=== PATIENT | female | born 1990 | race Hispanic/Latino ===

== ENCOUNTER → 2018-08-21 | Outpatient (CLI) | payer OTHER | END | disposition home or self-care (01) | LOC: RAH 13:39 | PROVIDERS: ATTEND Family Medicine | DX: E01.0 Iodine-deficiency related diffuse (endemic) goiter (principal) | CPT/HCPCS: 76536 ==

== ENCOUNTER 2022-02-05 10:21 | Emergency (ER) | payer OTHER ==
[~2022-02-05] VITALS: Ht 167.6 cm; Wt 122.9 kg
[2022-02-05] MEDS ORDERED: AMOX500C2 PO (11:32)
[2022-02-05] MEDS ORDERED: PRED5TAB PO (11:33)
[2022-02-05] MEDS ORDERED: ACETAMINOPHEN 500 MG TABLET PO STA (11:55)
[2022-02-05] MEDS ORDERED: ACETAMINOPHEN 500 MG TABLET ONE (11:56)
[2022-02-05 12:00] VITALS: BP 148/91
== END 2022-02-05 12:01 | disposition home or self-care (01) ==
LOC: EDH 10:21
DX: J02.0 Streptococcal pharyngitis (principal); E05.90 Thyrotoxicosis, unspecified without thyrotoxic crisis or storm; Z20.822 Contact with and (suspected) exposure to COVID-19
CPT/HCPCS: 99283; 87635; 87880; 87804 ×2; 81025; C9803

== ENCOUNTER 2023-02-07 06:21 | Emergency (ER) | payer OTHER ==
[~2023-02-07] VITALS: Ht 167.6 cm; Wt 117.0 kg
[~2023-02-07 06:21] MED LIST: AMOX500C2 PO; PRED5TAB PO
[2023-02-07 07:04] LABS: BASOPHILS # (AUTO) 0.05 K/uL (0.00-0.20); BASOPHILS % (AUTO) 0.5 % (0.0-5.0); EOSINOPHILS % (AUTO) 2.8 % (0.0-8.0); HEMATOCRIT 43.1 % (36-48); IMMATURE GRANULOCYTE ABSOLUTE 0.05 K/uL (0-1); LYMPHOCYTES # (AUTO) 2.2 K/uL (1.0-4.8); LYMPHOCYTES % (AUTO) 20.6 % (21.0-51.0); MEAN CORPUSCULAR HEMOGLOBIN 31.2 pg (27.0-33.0); MEAN CORPUSCULAR HGB CONC 34.6 g/dL (32.0-36.0); MEAN CORPUSCULAR VOLUME 90.2 fL (79-99); MONOCYTES # (AUTO) 0.7 K/uL (0.1-1.0); MONOCYTES % (AUTO) 6.5 % (3.0-13.0); NEUTROPHILS # (AUTO) 7.3 K/uL (1.8-7.7); NEUTROPHILS % (AUTO) 69.1 % (40.0-77.0); PLATELET COUNT (AUTO) 313 K/uL (130-400); RED BLOOD CELL COUNT(AUTO) 4.78 MIL/uL (4.00-5.50); WHITE BLOOD COUNT (AUTO) 10.6 K/uL (4.8-10.8)
[2023-02-07 07:11] LABS: SARS-CoV-2, RNA, NAAT NEGATIVE SARS CoV-2 (NEGATIVE)
[2023-02-07 07:15] LABS: INFLUENZA TYPE A Negative For Type A (NEGATIVE)
[2023-02-07 07:20] LABS: ALBUMIN 3.6 g/dL (3.5-5.0); BILIRUBIN,TOTAL 0.8 mg/dL (0.2-1.0); CREATININE 0.7 mg/dL (0.5-1.5); POTASSIUM 4.1 mmol/L (3.5-5.1); TOTAL PROTEIN, SERUM 8.5 g/dL (6.0-8.3)
[2023-02-07 07:28] LABS: INFLUENZA TYPE B Positive For Type B (NEGATIVE)
[2023-02-07 07:38] LABS: APPEARANCE,URINE CLEAR (CLEAR); BILIRUBIN,URINE NEGATIVE (NEGATIVE); COLOR,URINE LIGHT-YELLOW (YELLOW); GLUCOSE, URINE (UA) NEGATIVE (NEGATIVE); KETONES,URINE NEGATIVE (NEGATIVE); LEUKOCYTE ESTERASE ,URINE 25 Leu/uL (NEGATIVE); NITRATE,URINE NEGATIVE (NEGATIVE); OCCULT BLOOD,URINE SMALL (NEGATIVE); PROTEIN,URINE NEGATIVE (NEGATIVE); UROBILINOGEN,URINE 0.2 mg/dL (0.2-1.0)
[2023-02-07 07:54] LABS: ADD UA MICROSCOPIC YES
[2023-02-07 08:01] LABS: BACTERIA,URINE RARE /HPF (None Seen); MUCUS,URINE RARE LPF (None Seen); SQUAMOUS EPITHELIAL CELL,UR FEW /HPF (0-2); WBC,URINE 0-1 /HPF (0-1)
[2023-02-07] MEDS ORDERED: KETOROLAC 30MG VIAL (30MG/ML) IVP ONE (08:30)
[2023-02-07] MEDS ORDERED: ONDANSETRON 4MG INJ IVP ONE (08:30)
[2023-02-07 10:46] VITALS: BP 107/62; PULSE 75; RESP 16; O2SAT 99
[2023-02-07] MEDS ORDERED: SIMETHICONE 80 MG TAB.CHEW ONE (11:05)
[2023-02-07] MEDS ORDERED: MORPHINE 4 MG SYG ONE (11:06)
[2023-02-07] MEDS ORDERED: SIMETHICONE 80 MG TAB.CHEW PO SCH (11:30)
[2023-02-07] MEDS ORDERED: MORPHINE 4 MG SYG IVP ONE (11:30)
[2023-02-07] MEDS ORDERED: IBUP-2070 PO (12:37)
[2023-02-07] MEDS ORDERED: ONDA4TAB10 PO (12:37)
== END 2023-02-07 13:48 | disposition home or self-care (01) ==
LOC: EDH 06:21
DX: K80.50 Calculus of bile duct without cholangitis or cholecystitis without obstruction (principal); Z79.52 Long term (current) use of systemic steroids; Z20.822 Contact with and (suspected) exposure to COVID-19
CPT/HCPCS: 99285; 76705; 87635; 80053; 83690; 85025; 87804 ×2; 81001; 81025; 36415; C9803; J2405; J2270; J1885

== ENCOUNTER 2023-07-17 02:38 | Emergency (ER) | payer BC, OTHER ==
[~2023-07-17] VITALS: Ht 167.6 cm; Wt 119.3 kg
[~2023-07-17 02:38] MED LIST changes: +IBUP-2070 PO; +ONDA4TAB10 PO
[2023-07-17] MEDS: KETOROLAC 15MG/ML VIAL (15MG/ML) IV ONE (03:00)
[2023-07-17] MEDS: DICYCLOMINE 20MG (10MG/ML) AMP IM ONE (03:00)
[2023-07-17] MEDS: 0.9%NACL 1000ML 1,000 ML IV ONE (03:01)
[2023-07-17] MEDS: ONDANSETRON 4MG INJ IVP ONE (03:01)
[2023-07-17] MEDS: MORPHINE 4 MG SYG IVP ONE (03:01)
[2023-07-17 03:23] LABS: APPEARANCE,URINE CLEAR (CLEAR); BILIRUBIN,URINE NEGATIVE (NEGATIVE); COLOR,URINE LIGHT-YELLOW (YELLOW); GLUCOSE, URINE (UA) NEGATIVE (NEGATIVE); KETONES,URINE NEGATIVE (NEGATIVE); LEUKOCYTE ESTERASE ,URINE 75 Leu/uL (NEGATIVE); NITRATE,URINE NEGATIVE (NEGATIVE); OCCULT BLOOD,URINE MODERATE (NEGATIVE); PH,URINE 5.5 (5.0-8.0); PROTEIN,URINE NEGATIVE (NEGATIVE); UROBILINOGEN,URINE 0.2 mg/dL (0.2-1.0)
[2023-07-17 03:25] LABS: HCG,QUALITATIVE URINE NEGATIVE (NEGATIVE)
[2023-07-17 03:28] LABS: ADD UA MICROSCOPIC YES
[2023-07-17 03:30] LABS: BACTERIA,URINE RARE /HPF (None Seen); MUCUS,URINE RARE LPF (None Seen); SQUAMOUS EPITHELIAL CELL,UR FEW /HPF (0-2)
[2023-07-17 03:31] LABS: BASOPHILS # (AUTO) 0.06 K/uL (0.00-0.20); BASOPHILS % (AUTO) 0.6 % (0.0-5.0); EOSINOPHILS # (AUTO) 0.37 K/uL (0.00-0.70); EOSINOPHILS % (AUTO) 3.8 % (0.0-8.0); HEMATOCRIT 40.7 % (36-48); IMMATURE GRANULOCYTE ABSOLUTE 0.03 K/uL (0-1); LYMPHOCYTES # (AUTO) 2.4 K/uL (1.0-4.8); LYMPHOCYTES % (AUTO) 25.1 % (21.0-51.0); MEAN CORPUSCULAR HEMOGLOBIN 31.3 pg (27.0-33.0); MEAN CORPUSCULAR HGB CONC 34.9 g/dL (32.0-36.0); MEAN CORPUSCULAR VOLUME 89.6 fL (79-99); MONOCYTES # (AUTO) 0.7 K/uL (0.1-1.0); MONOCYTES % (AUTO) 7.4 % (3.0-13.0); NEUTROPHILS % (AUTO) 62.8 % (40.0-77.0); PLATELET COUNT (AUTO) 278 K/uL (130-400); RED BLOOD CELL COUNT(AUTO) 4.54 MIL/uL (4.00-5.50); RED CELL DISTRIBUTION WIDTH 11.9 % (11.0-15.5); WHITE BLOOD COUNT (AUTO) 9.6 K/uL (4.8-10.8)
[2023-07-17 03:33] VITALS: BP 125/74; PULSE 64; RESP 20; O2SAT 95
[2023-07-17 03:40] LABS: CREATININE 0.8 mg/dL (0.5-1.0); POTASSIUM 3.8 mmol/L (3.5-5.1)
[2023-07-17 03:45] LABS: ALBUMIN 3.5 g/dL (3.5-5.0); BILIRUBIN,TOTAL 0.7 mg/dL (0.2-1.0)
[2023-07-17] MEDS ORDERED: HYDR-4064 PO (03:49)
[2023-07-17] MEDS ORDERED: ONDA4TAB10 PO (03:49)
[2023-07-17] MEDS ORDERED: IBUP-2077 PO (03:49)
[2023-07-17] MEDS ORDERED: DICY20TA2 PO (03:49)
== END 2023-07-17 04:06 | disposition home or self-care (01) ==
LOC: EDH 02:38
DX: K80.20 Calculus of gallbladder without cholecystitis without obstruction (principal); Z79.899 Other long term (current) drug therapy; Z98.890 Other specified postprocedural states
CPT/HCPCS: 99284; 96374; 76705; 96375; 96361; 80053; 83690; 85025; 87088; 81001; 81025; 36415; 96372; J7030; J2405; J2270; J0500; J1885

== ENCOUNTER 2023-10-26 05:53 | Emergency (ER) | payer BC ==
[~2023-10-26] VITALS: Ht 162.6 cm; Wt 117.9 kg
[~2023-10-26 05:53] MED LIST changes: +DICY20TA2 PO; +HYDR-4064 PO; +IBUP-2077 PO; +ONDA-243 PO; -ONDA4TAB10 PO
[2023-10-26 06:33] LABS: APPEARANCE,URINE CLEAR (CLEAR); BILIRUBIN,URINE NEGATIVE (NEGATIVE); COLOR,URINE LIGHT-YELLOW (YELLOW); GLUCOSE, URINE (UA) NEGATIVE (NEGATIVE); KETONES,URINE NEGATIVE (NEGATIVE); LEUKOCYTE ESTERASE ,URINE NEGATIVE Leu/uL (NEGATIVE); NITRATE,URINE NEGATIVE (NEGATIVE); OCCULT BLOOD,URINE MODERATE (NEGATIVE); PROTEIN,URINE NEGATIVE (NEGATIVE); UROBILINOGEN,URINE 0.2 mg/dL (0.2-1.0)
[2023-10-26 06:36] LABS: HCG,QUALITATIVE URINE NEGATIVE (NEGATIVE)
[2023-10-26 06:38] LABS: ADD UA MICROSCOPIC YES; MUCUS,URINE RARE LPF (None Seen); SQUAMOUS EPITHELIAL CELL,UR RARE /HPF (0-2)
[2023-10-26] MEDS: LIDOCAINE HCL 2% VISCOUS 15 ML UDCUP PO ONE (07:50)
[2023-10-26] MEDS: LACTATED RINGERS 1000ML 1,095 ML IV ONE (07:50)
[2023-10-26] MEDS: FAMOTIDINE 20MG TAB PO ONE (07:50)
[2023-10-26] MEDS: MAG/ALUM/SIMETH 30 ML UDCUP PO ONE (07:50)
[2023-10-26 07:51] LABS: BASOPHILS # (AUTO) 0.05 K/uL (0.00-0.20); BASOPHILS % (AUTO) 0.7 % (0.0-5.0); EOSINOPHILS # (AUTO) 0.27 K/uL (0.00-0.70); EOSINOPHILS % (AUTO) 3.6 % (0.0-8.0); HEMATOCRIT 40.9 % (36-48); IMMATURE GRANULOCYTE ABSOLUTE 0.02 K/uL (0-1); LYMPHOCYTES % (AUTO) 26.9 % (21.0-51.0); MEAN CORPUSCULAR HEMOGLOBIN 30.8 pg (27.0-33.0); MEAN CORPUSCULAR HGB CONC 34.2 g/dL (32.0-36.0); MEAN CORPUSCULAR VOLUME 89.9 fL (79-99); MONOCYTES # (AUTO) 0.5 K/uL (0.1-1.0); MONOCYTES % (AUTO) 7.1 % (3.0-13.0); NEUTROPHILS # (AUTO) 4.6 K/uL (1.8-7.7); NEUTROPHILS % (AUTO) 61.4 % (40.0-77.0); PLATELET COUNT (AUTO) 269 K/uL (130-400); RED BLOOD CELL COUNT(AUTO) 4.55 MIL/uL (4.00-5.50); RED CELL DISTRIBUTION WIDTH 12.3 % (11.0-15.5); WHITE BLOOD COUNT (AUTO) 7.4 K/uL (4.8-10.8)
[2023-10-26] MEDS: DICYCLOMINE HCL 10 MG/5 ML ML PO ONE (07:52)
[2023-10-26] MEDS: morPHINE 4 MG SYG IVP ONE (07:52)
[2023-10-26 08:08] LABS: ALBUMIN 3.4 g/dL (3.5-5.0); BILIRUBIN,TOTAL 0.6 mg/dL (0.2-1.0); CREATININE 0.8 mg/dL (0.5-1.0); POTASSIUM 3.8 mmol/L (3.5-5.1); TOTAL PROTEIN, SERUM 7.7 g/dL (6.0-8.3)
[2023-10-26 09:29] VITALS: BP 127/68; PULSE 89; RESP 18; TEMP 98.2; O2SAT 100
== END 2023-10-26 09:53 | disposition home or self-care (01) ==
LOC: EDH 05:53
DX: K80.20 Calculus of gallbladder without cholecystitis without obstruction (principal); R10.13 Epigastric pain; E06.3 Autoimmune thyroiditis; Z90.49 Acquired absence of other specified parts of digestive tract; Z79.52 Long term (current) use of systemic steroids
CPT/HCPCS: 99284; 96374; 96361; 80053; 83690; 85025; 81001; 81025; 36415; J7120; J2270

== ENCOUNTER 2023-12-08 06:22 | Emergency (ER) | payer BC, OTHER ==
[~2023-12-08] VITALS: Ht 167.6 cm; Wt 116.1 kg
[2023-12-08 06:53] LABS: BASOPHILS # (AUTO) 0.05 K/uL (0.00-0.20); BASOPHILS % (AUTO) 0.6 % (0.0-5.0); EOSINOPHILS # (AUTO) 0.29 K/uL (0.00-0.70); EOSINOPHILS % (AUTO) 3.4 % (0.0-8.0); IMMATURE GRANULOCYTE ABSOLUTE 0.03 K/uL (0-1); LYMPHOCYTES # (AUTO) 1.9 K/uL (1.0-4.8); LYMPHOCYTES % (AUTO) 21.9 % (21.0-51.0); MEAN CORPUSCULAR HEMOGLOBIN 30.9 pg (27.0-33.0); MEAN CORPUSCULAR HGB CONC 34.3 g/dL (32.0-36.0); MEAN CORPUSCULAR VOLUME 90.1 fL (79-99); MONOCYTES # (AUTO) 0.5 K/uL (0.1-1.0); MONOCYTES % (AUTO) 5.8 % (3.0-13.0); NEUTROPHILS # (AUTO) 5.7 K/uL (1.8-7.7); NEUTROPHILS % (AUTO) 67.9 % (40.0-77.0); PLATELET COUNT (AUTO) 276 K/uL (130-400); RED BLOOD CELL COUNT(AUTO) 4.66 MIL/uL (4.00-5.50); RED CELL DISTRIBUTION WIDTH 11.9 % (11.0-15.5); WHITE BLOOD COUNT (AUTO) 8.4 K/uL (4.8-10.8)
[2023-12-08 07:12] LABS: CREATININE 0.8 mg/dL (0.5-1.0); POTASSIUM 3.7 mmol/L (3.5-5.1)
[2023-12-08 07:23] LABS: APPEARANCE,URINE CLEAR (CLEAR); BILIRUBIN,URINE NEGATIVE (NEGATIVE); COLOR,URINE COLORLESS (YELLOW); GLUCOSE, URINE (UA) NEGATIVE (NEGATIVE); KETONES,URINE NEGATIVE (NEGATIVE); LEUKOCYTE ESTERASE ,URINE 75 Leu/uL (NEGATIVE); NITRATE,URINE NEGATIVE (NEGATIVE); OCCULT BLOOD,URINE NEGATIVE (NEGATIVE); PROTEIN,URINE NEGATIVE (NEGATIVE); UROBILINOGEN,URINE 0.2 mg/dL (0.2-1.0)
[2023-12-08 07:25] LABS: ADD UA MICROSCOPIC YES; HCG,QUALITATIVE URINE NEGATIVE (NEGATIVE)
[2023-12-08 07:32] LABS: BACTERIA,URINE RARE /HPF (None Seen); RBC,URINE 0-1 /HPF (0-1); SQUAMOUS EPITHELIAL CELL,UR RARE /HPF (0-2)
[2023-12-08 08:32] LABS: ALBUMIN 3.6 g/dL (3.5-5.0); BILIRUBIN,DIRECT 0.2 mg/dL (0.0-0.3); BILIRUBIN,TOTAL 0.8 mg/dL (0.2-1.0)
[2023-12-08 09:00] VITALS: BP 124/82; PULSE 64; RESP 16; TEMP 97.5; O2SAT 99
[2023-12-08] MEDS ORDERED: CEPH500B PO (09:34)
== END 2023-12-08 09:50 | disposition home or self-care (01) ==
LOC: EDH 06:22
DX: K80.50 Calculus of bile duct without cholangitis or cholecystitis without obstruction (principal); N39.0 Urinary tract infection, site not specified; Z79.52 Long term (current) use of systemic steroids
CPT/HCPCS: 36415; 76705; 80048; 80076; 81001; 81025; 83690; 85025; 87086

== ENCOUNTER 2023-12-28 21:41 | Emergency (ER) | payer OTHER ==
[~2023-12-28] VITALS: Ht 167.6 cm; Wt 113.9 kg
[~2023-12-28 21:41] MED LIST changes: +CEPH500B PO
[2023-12-28 22:03] LABS: BASOPHILS # (AUTO) 0.05 K/uL (0.00-0.20); BASOPHILS % (AUTO) 0.6 % (0.0-5.0); EOSINOPHILS # (AUTO) 0.34 K/uL (0.00-0.70); EOSINOPHILS % (AUTO) 3.9 % (0.0-8.0); HEMATOCRIT 40.3 % (36-48); IMMATURE GRANULOCYTE ABSOLUTE 0.03 K/uL (0-1); LYMPHOCYTES % (AUTO) 34.1 % (21.0-51.0); MEAN CORPUSCULAR HEMOGLOBIN 30.6 pg (27.0-33.0); MEAN CORPUSCULAR VOLUME 87.4 fL (79-99); MONOCYTES # (AUTO) 0.7 K/uL (0.1-1.0); MONOCYTES % (AUTO) 7.4 % (3.0-13.0); NEUTROPHILS # (AUTO) 4.7 K/uL (1.8-7.7); NEUTROPHILS % (AUTO) 53.7 % (40.0-77.0); PLATELET COUNT (AUTO) 296 K/uL (130-400); RED BLOOD CELL COUNT(AUTO) 4.61 MIL/uL (4.00-5.50); RED CELL DISTRIBUTION WIDTH 12.2 % (11.0-15.5); WHITE BLOOD COUNT (AUTO) 8.7 K/uL (4.8-10.8)
--- NOTE | 2023-12-28 22:05 | ERN ---
ED Note History of Present Illness Stated Complaint: ABD PAIN Chief Complaint: Abdominal Pain Time Seen by MD: 21:43 Dictation: 33F presents from home for abdominal pain beginning prior to arrival. Her symptoms started after she ate a taco and cheese Pain described as epigastric, radiating to the right shoulder. She feels bloated. She feels nauseous. No vomiting. No diarrhea or urinary symptoms. Patient reports that she has been diagnosed with cholelithiasis in the past. This is a similar presentation according to the patient. Temperature 98, pulse 68 respirations 16 blood pressure 117/81 pulse oximetry 99% on room Last gallbladder attack was about a few months ago. She reports she gets this a few times per year for the last few years. She was supposed to see general surgeon after the last attack however she had no insurance at the time She reports that her entire family with extended cousins all have gallbladder issues and have had cholecystectomy She has been to the ER almost every month and a every few weeks this whole year. Allergies: Coded Allergies: No Known Allergies (Unverified Allergy, Unknown, 02/05/22) Home Meds Active Scripts Hydrocodone/Acetaminophen (Hydrocodon-Acetaminophen 5-325) 5 Mg-325 Mg Tablet, 1 EACH PO q8 for pain, #5 TAB 0 Refills Prov:JR POOL MD 12/28/23 Enzymes,Digestive (Digestive Wellness) 1 Each Capsule, 1 EACH PO DAILY, #30 CAP Prov:JR POOL MD 12/28/23 Cephalexin Monohydrate (Keflex) 500 Mg Cap, 1 CAP PO BID for 10 Days, #20 CAP 0 Refills Prov:EMELYN GALLO MD 12/08/23 Hydrocodone/Acetaminophen (Hydrocodon-Acetaminoph 7.5-325) 7.5 Mg-325 Mg Tablet, 1 EACH PO TID PRN for PAIN for 10 Days, #20 TAB Prov:VICTORIANO BLOCK DO 07/17/23 Dicyclomine HCl (Bentyl) 20 Mg Tab, 20 MG PO QID for abd pain, #20 TAB Prov:VICTORIANO BLOCK DO 07/17/23 Ondansetron (Ondansetron Odt) 4 Mg Tab.rapdis, 4 MG PO TID for nausea/vomiting for 10 Days, #10 TAB Prov:VICTORIANO BLOCK DO 07/17/23 Ibuprofen (Ibuprofen 800 mg Tab) 800 Mg Tab, 800 MG PO Q6H PRN for PAIN, #30 TAB Prov:VICTORIANO BLOCK DO 07/17/23 Ondansetron (Ondansetron Odt) 4 Mg Tab.rapdis, 4 MG PO TID PRN for NAUSEA, #30 TAB 0 Refills Prov:VERNA WAKEFIELD MD 02/07/23 Ibuprofen (Ibuprofen) 600 Mg Tablet, 600 MG PO Q6H PRN for PAIN, #40 TAB 0 Refills Prov:VERNA WAKEFIELD MD 02/07/23 Prednisone (Prednisone) 5 Mg Tablet, 5 MG PO BID for 7 Days, #14 TAB Prov:EMELYN GALLO MD 02/05/22 Amoxicillin (Amoxicillin) 500 Mg Capsule, 500 MG PO TID for 7 Days, #21 CAP Prov:EMELYN GALLO MD 02/05/22 Past Medical History Past Medical History: Other Additional Past Medical Hx: HX OF GALLSTONE; ALEXANDRE Surgical History: None Family History: Negative Social History: Negative LMP: Dec 27, 2023 RN Note Reviewed/Agreed w/PFSH: Yes Review of System Dictation Constitutional: Negative for fever,chills, and weight loss Eyes: Negative for injury, pain,redness, and discharge ENT: Negative for injury,pain or swelling Cardiovascular: Negative for chest pain, palpitations, and edema Respiratory: Negative for shortness of breath, cough, and wheezing, Abdomen/GI: Positive for abdominal pain, nausea, vomiting, denied diarrhea, and constipation Back: Negative for injury and pain : Negative for injury, bleeding and discharge MS/Extremity: Negative for injury and deformity Skin: Negative for rash, and discoloration Neuro: Negative for headache, weakness, numbness, tingling, and seizure Psych: Negative for suicide ideation, homicidal ideation, and hallucinations Initial Vital Sign VS Vital Signs Date Time Temp Pulse Resp B/P (MAP) Pulse Ox O2 Delivery O2 Flow Rate FiO2 12/28/23 21:42 98.1 68 16 117/81 99 Room Air 12/28/23 22:35 0 21 Physical Exam Dictation General: awake, alert, NAD morbidly obese female Head/Face: Normocephalic, atraumatic Eyes: PERRL, EOMI, vision at baseline ENT: oral cavity clear, TMs clear, no signs of infection Neck: Trachea midline, supple, no nuchal rigidity Cardiovascular: RRR, normal S1/S2, No MRGs, no JVD Respiratory: CTAB, no respiratory distress, No rales or wheezes Abdomen: Soft, mildly tender right upper quadrant-, non-distended, normal bowel sounds, no guarding or rebound. Skin: Warm, dry, normal turgor, no rash MS/Extremity: Pulses equal, no cyanosis, neurovascular intact, FROM Neuro: COAx4, GCS 15, strength 5/5, CN 2-12 intact, normal cerebellar exam, normal gait, Psych: Normal behavior, mood, and affect normal Extremities-trace edema without any palpable cords, Homans sign is negative Results (Laboratory/Radiology) Laboratory/Radiology Laboratory Tests Test 12/28/23 21:48 12/28/23 21:56 Urine Color LIGHT-YELLOW (YELLOW) Urine Appearance CLEAR (CLEAR) Urine pH 5.5 (5.0-8.0) Urine Specific [place] 1.012 (1.001-1.031) Urine Protein NEGATIVE mg/dL (NEGATIVE) Urine Glucose (UA) NEGATIVE mg/dL (NEGATIVE) Urine Ketones NEGATIVE mg/dL (NEGATIVE) Urine Occult Blood MODERATE (NEGATIVE) H Urine Nitrate NEGATIVE (NEGATIVE) Urine Bilirubin NEGATIVE mg/dL (NEGATIVE) Urine Urobilinogen 0.2 mg/dL (0.2-1.0) Urine Leukocyte Esterase 250 Amalia/uL (NEGATIVE) H Urine RBC 6-10 /HPF (0-1) H Urine WBC 11-25 /HPF (0-1) H Urine Squamous Epithelial Cells RARE /HPF (0-2) Urine Bacteria MOD /HPF (None Seen) White Blood Count 8.7 K/uL (4.8-10.8) Red Blood Count 4.61 MIL/uL (4.00-5.50) Hemoglobin 14.1 g/dL (12.0-16.0) Hematocrit 40.3 % (36-48) Mean Corpuscular Volume 87.4 fL (79-99) Mean Corpuscular Hemoglobin 30.6 pg (27.0-33.0) Mean Corpuscular Hemoglobin Concent 35.0 g/dL (32.0-36.0) Red Cell Distribution Width 12.2 % (11.0-15.5) Platelet Count 296 K/uL (130-400) Mean Platelet Volume 10.0 fL (7.5-10.5) Immature Granulocyte % (Auto) 0.3 % (0-1) Neutrophils (%) (Auto) 53.7 % (40.0-77.0) Lymphocytes (%) (Auto) 34.1 % (21.0-51.0) Monocytes (%) (Auto) 7.4 % (3.0-13.0) Eosinophils (%) (Auto) 3.9 % (0.0-8.0) Basophils (%) (Auto) 0.6 % (0.0-5.0) Neutrophils # (Auto) 4.7 K/uL (1.8-7.7) Lymphocytes # (Auto) 3.0 K/uL (1.0-4.8) Monocytes # (Auto) 0.7 K/uL (0.1-1.0) Eosinophils # (Auto) 0.34 K/uL (0.00-0.70) Basophils # (Auto) 0.05 K/uL (0.00-0.20) Absolute Immature Granulocyte (auto 0.03 K/uL (0-1) Nucleated Red Blood Cells 0.0 % (0.0-0.19) Sodium Level 135 mmol/L (136-145) L Potassium Level 3.4 mmol/L (3.5-5.1) L Chloride Level 100 mmol/L (101-111) L Carbon Dioxide Level 29 mmol/L (21-32) Blood Urea Nitrogen 9 mg/dL (7-18) Creatinine 0.8 mg/dL (0.5-1.0) Glomerular Filtration Rate Calc 100 mL/min (>90) Random Glucose 109 mg/dL (70-105) H Total Calcium 8.8 mg/dL (8.5-10.1) Total Bilirubin 0.8 mg/dL (0.2-1.0) Direct Bilirubin 0.1 mg/dL (0.0-0.3) Aspartate Amino Transf (AST/SGOT) 20 U/L (10-37) Alanine Aminotransferase (ALT/SGPT) 33 U/L (12-78) Alkaline Phosphatase 68 U/L (50-136) Total Protein 7.7 g/dL (6.0-8.3) Albumin 3.6 g/dL (3.5-5.0) Lipase 95 U/L (16-77) H Serum Test, Qualitative NEGATIVE (NEGATIVE) Labs Reviewed?: Yes Ultrasound Comment: PATIENT: PATRICIA ROWLEY MR#: [id number] : 1990 SEX: F AGE: 33 LOCATION: [facility] ORDER STATUS: REG ER REPORT#: [id number] SERVICE 4 REASON: ruq pain ORDERING PHYSICIAN: EMELYN GALLO MD PROCEDURE: ABDRUQLTD - US ABDOMINAL RUQ\LTD US ABDOMINAL RUQ\E\LTD HISTORY: Abdominal pain COMPARISON: None TECHNIQUE: Right upper quadrant abdominal ultrasound study was performed. FINDINGS: Liver measures 17.1 cm. The visualized portion of the pancreas is within normal limits. Liver is echogenic consistent with liver parenchymal disease. Gallstones are seen in the gallbladder. Common duct measures 4 mm. No evidence of gallbladder wall thickening is seen. Right kidney measures 10.2 x 5.1 x 6 cm. No hydronephrosis is seen of the right kidney. IMPRESSION: 1. Gallstones. No ductal dilatation is seen. 2. No hydronephrosis is seen. DICTATED BY: TICO CROOKS MD DATE: 12/08/23 0838 ELECTRONICALLY SIGNED BY: TICO CROOKS MD DATE: 12/08/23 0840 ED Course ED Course Orders Procedure Category Date Status Time Vital Signs Per CPOE 12/28/23 Transmitted Routine 21:43 Saline Lock Iv CPOE 12/28/23 Transmitted 21:43 Cbc With Differential LAB 12/28/23 Complete 21:43 Lipase LAB 12/28/23 Complete 21:43 Testing, LAB 12/28/23 Complete Serum Hcg 21:43 Urinalysis Profile LAB 12/28/23 Complete 21:43 Basic Metabolic Panel LAB 12/28/23 Complete 21:43 Hepatic Function Panel LAB 12/28/23 Complete 21:43 Culture Urine BLANKA 12/28/23 In Process 22:20 Pantoprazole 40mg Tab PHA 12/28/23 Complete (Protonix 40mg Tab 23:00 Ketorolac PHA 12/28/23 Complete Tromethamine 15mg/Ml 23:00 Ketorolac PHA 12/28/23 Complete Tromethamine 15mg/Ml 23:00 Current Medications Medications (Trade) Dose Ordered Sig/Radha Route PRN Reason Start Time Stop Time Status Last Admin Dose Admin Ketorolac Tromethamine (toRADol) 15 mg ONCE ONCE IM 12/28/23 23:00 12/28/23 22:41 DC Ketorolac Tromethamine (toRADol) 15 mg ONCE ONCE IV 12/28/23 23:00 12/28/23 22:58 DC 12/28/23 22:44 Pantoprazole Sodium (PROTonix 40MG TAB) 40 mg ONCE ONCE PO 12/28/23 23:00 12/28/23 22:58 DC 12/28/23 22:44 Vital Signs Date Time Temp Pulse Resp B/P (MAP) Pulse Ox O2 Delivery O2 Flow Rate FiO2 12/28/23 22:35 98.1 72 16 124/76 99 Room Air* 0 21 12/28/23 21:42 98.1 68 16 117/81 99 Room Air We will perform diagnostic labs, advanced imaging and administer medications according to the patient's complaint. Once the results are available, will review and personally interpreted the labs to rule out any acute life- threatening emergency the trach require immediate intervention and treatment. I will then re-evaluate the patient after treatment and diagnostic exams have return to determine whether the patient requires any further testing, can safely be discharged home or need further admission to hospital for additional treatment and evaluation. Her symptoms resolved with symptomatic management and she intends to follow up with General surgery to definitively address the gallbladder issues Medical Decision Making MDM MDM: Differential diagnosis: Biliary colic, cholecystitis, gastritis, gastroesophageal reflux disease Rationale: Tests considered and ordered secondary to shared decision making include: Previous outside records reviewed: Old ER visits. Risk of complication and/or morbidity or mortality of patient management: None Medications-Per medication reconciliation Need for hospitalization: Patient does not meet criteria for hospitalization. Need for emergency major/minor surgery: No There are no social concerns with this patient. Prescription drug management Prescriptions will include symptomatic care Patient's prior external medical records from other ER visits were reviewed by me as indicated. Prior testing and results from previous visits were reviewed. Prior tests were taken into account with medical decision making and resource utilization, independent historian/historians were used to obtain complete medical history. I independently interpreted the test that were performed, results were reviewed by me and considered findings on radiology if ordered. Medical management and examination interpretation discussions were had by me with other qualified healthcare professionals as indicated for the patient's care. Problem List Problem List: (1) Abdominal pain (2) Cholelithiasis (3) Biliary colic (4) History of Alexandre thyroiditis DX & DISP Disposition: Discharge Departure Impression: Primary Impression: Abdominal pain Additional Impressions: Biliary colic, Cholelithiasis, History of Alexandre thyroiditis Condition: Stable Scripts Hydrocodone/Acetaminophen (Hydrocodon-Acetaminophen 5-325) 5 Mg-325 Mg Tablet 1 EACH PO q8 for pain, #5 TAB 0 Refills Prov: JR POOL MD 12/28/23 Enzymes,Digestive (Digestive Wellness) 1 Each Capsule 1 EACH PO DAILY, #30 CAP Prov: JR POOL MD 12/28/23 Additional Instructions: Patient and the caregiver have been informed of all the diagnostic tests and the imaging conducted during the today's visit to the emergency room and has verbalized understanding of the results I have personally reviewed and interpre fallon all diagnostic exams performed here in the ER today as well as the vital signs documented by the nursing staff. The patient is now being discharged to home and should follow up with the primary care physician or the specialist as directed by the ER staff. Follow-up with primary care provider in 1 to 2 days. Take medications as directed here in the emergency room. Okay to continue home medications unless otherwise discussed during your visit in the emergency room today. Return to your nearest emergency room if symptoms worsen or if there is no improvement. Call 911 if you need immediate assistance. Take Tylenol or Motrin o [id number] as needed and if no contraindications are present. Increase oral hydration. A wound culture or urine culture was ordered here in the emergency room department please follow-up with primary care provider and advise them to get repeat ports from our facility. If you had any Aristides wrap/splints that were applied here, please do not remove them until you see your primary care or specialty. Referral to General surgery given again for definitive evaluation of recurrent biliary colic, cholelithiasis. I have also counseled her on avoiding fatty meals. Referrals: MARY APONTE MD (PCP) VANIA WELSH ANURADHA R MD Dec 28, 2023 22:05
[2023-12-28 22:12] LABS: CREATININE 0.8 mg/dL (0.5-1.0); POTASSIUM 3.4 mmol/L (3.5-5.1)
[2023-12-28 22:15] LABS: APPEARANCE,URINE CLEAR (CLEAR); BILIRUBIN,URINE NEGATIVE (NEGATIVE); COLOR,URINE LIGHT-YELLOW (YELLOW); GLUCOSE, URINE (UA) NEGATIVE (NEGATIVE); KETONES,URINE NEGATIVE (NEGATIVE); LEUKOCYTE ESTERASE ,URINE 250 Leu/uL (NEGATIVE); NITRATE,URINE NEGATIVE (NEGATIVE); OCCULT BLOOD,URINE MODERATE (NEGATIVE); PH,URINE 5.5 (5.0-8.0); PROTEIN,URINE NEGATIVE (NEGATIVE); UROBILINOGEN,URINE 0.2 mg/dL (0.2-1.0)
[2023-12-28 22:16] LABS: ALBUMIN 3.6 g/dL (3.5-5.0); BILIRUBIN,DIRECT 0.1 mg/dL (0.0-0.3); BILIRUBIN,TOTAL 0.8 mg/dL (0.2-1.0); TOTAL PROTEIN, SERUM 7.7 g/dL (6.0-8.3)
[2023-12-28 22:19] LABS: ADD UA MICROSCOPIC YES
[2023-12-28 22:25] LABS: BACTERIA,URINE MOD /HPF (None Seen); SQUAMOUS EPITHELIAL CELL,UR RARE /HPF (0-2)
[2023-12-28] MEDS ORDERED: ENZY1CAP PO (22:33)
[2023-12-28] MEDS ORDERED: HYDR-4060 PO (22:33)
[2023-12-28 22:35] VITALS: BP 124/76; PULSE 72; RESP 16; TEMP 98.1; O2SAT 99
[2023-12-28] MEDS: ketOROlac 15MG/ML VIAL (15MG/ML) IV ONE (22:44)
[2023-12-28] MEDS: PANTOPrazole 40 MG TAB DR PO ONE (22:44)
[2023-12-28] MEDS ORDERED: ketOROlac 15MG/ML VIAL (15MG/ML) IM ONE (23:00)
== END 2023-12-28 22:58 | disposition home or self-care (01) ==
LOC: EDH 21:41
DX: K80.70 Calculus of gallbladder and bile duct without cholecystitis without obstruction (principal); R10.9 Unspecified abdominal pain; E06.3 Autoimmune thyroiditis; Z79.52 Long term (current) use of systemic steroids; Z79.899 Other long term (current) drug therapy
CPT/HCPCS: 99283; 96374; 80076; 80048; 84703; 83690; 85025; 87086; 81001; 36415; J1885; 99284

== ENCOUNTER 2024-03-24 21:48 | Emergency (ER) | payer OTHER ==
[~2024-03-24] VITALS: Ht 167.6 cm; Wt 113.9 kg
[~2024-03-24 21:48] MED LIST changes: +ENZY1CAP PO; +HYDR-4060 PO
[2024-03-24] MEDS ORDERED: ketOROlac 30MG VIAL (30MG/ML) IVP ONE (22:30)
[2024-03-24] MEDS ORDERED: ondanSETRON 4MG INJ IVP ONE (22:30)
[2024-03-24] MEDS: ondanSETRON ODT 4MG TAB SL ONE (23:01)
[2024-03-24] MEDS: ondanSETRON ODT 4MG TAB ONE (23:02)
[2024-03-24] MEDS: DICYCLOMINE 20MG (10MG/ML) AMP IM ONE (23:07)
[2024-03-24] MEDS: ketOROlac 30MG VIAL (30MG/ML) IM ONE (23:07)
--- NOTE | 2024-03-24 23:44 | ERN ---
ED Note History of Present Illness Stated Complaint: GALLBLADDER ISSUES Chief Complaint: Abdominal Pain Time Seen by MD: 22:23 Time Seen by Midlevel: 22:23 Dictation: 34-year-old female presents to the emergency department due to reported having pain to the epigastric and right upper quadrant that began 1 hour prior to arrival. She states that she does have a history of gallstones and believes that this might be related to that. At this time, she rates her level of pain as an 8/10. Patient does report having some nausea but no vomiting. The patient states that her pain does migrate to the back. Upon initial evaluation, the patient presents mildly uncomfortable looking. Allergies: Coded Allergies: No Known Allergies (Unverified Allergy, Unknown, 02/05/22) Emergency Care HEADING REPAIRER: None Home Meds Active Scripts Hydrocodone/Acetaminophen (Hydrocodon-Acetaminophen 5-325) 5 Mg-325 Mg Tablet, 1 EACH PO q8 for pain, #5 TAB 0 Refills Prov:JR POOL MD 12/28/23 Enzymes,Digestive (Digestive Wellness) 1 Each Capsule, 1 EACH PO DAILY, #30 CAP Prov:JR POOL MD 12/28/23 Cephalexin Monohydrate (Keflex) 500 Mg Cap, 1 CAP PO BID for 10 Days, #20 CAP 0 Refills Prov:EMELYN GALLO MD 12/08/23 Hydrocodone/Acetaminophen (Hydrocodon-Acetaminoph 7.5-325) 7.5 Mg-325 Mg Tablet, 1 EACH PO TID PRN for PAIN for 10 Days, #20 TAB Prov:VICTORIANO BLOCK DO 07/17/23 Dicyclomine HCl (Bentyl) 20 Mg Tab, 20 MG PO QID for abd pain, #20 TAB Prov:VICTORIANO BLOCK DO 07/17/23 Ondansetron (Ondansetron Odt) 4 Mg Tab.rapdis, 4 MG PO TID for nausea/vomiting for 10 Days, #10 TAB Prov:VICTORIANO BLOCK DO 07/17/23 Ibuprofen (Ibuprofen 800 mg Tab) 800 Mg Tab, 800 MG PO Q6H PRN for PAIN, #30 TAB Prov:VICTORIANO BLOCK DO 07/17/23 Ondansetron (Ondansetron Odt) 4 Mg Tab.rapdis, 4 MG PO TID PRN for NAUSEA, #30 TAB 0 Refills Prov:VERNA WAKEFIELD MD 02/07/23 Ibuprofen (Ibuprofen) 600 Mg Tablet, 600 MG PO Q6H PRN for PAIN, #40 TAB 0 Refi lls Prov:VERNA WAKEFIELD MD 02/07/23 Prednisone (Prednisone) 5 Mg Tablet, 5 MG PO BID for 7 Days, #14 TAB Prov:EMELYN GALLO MD 02/05/22 Amoxicillin (Amoxicillin) 500 Mg Capsule, 500 MG PO TID for 7 Days, #21 CAP Prov:EMELYN GALLO MD 02/05/22 Past Medical History Past Medical History: Gallstones, Other Additional Past Medical Hx: THYROID DISEASE Surgical History: None PSYCH History: no pertinent psych hx Family History: Negative Social History: Negative LMP: Mar 03, 2024 RN Note Reviewed/Agreed w/PFSH: Yes Review of System Dictation Constitutional: Chills Abdomen/GI: Abdominal pain, nausea Initial Vital Sign VS Vital Signs Date Time Temp Pulse Resp B/P (MAP) Pulse Ox O2 Delivery O2 Flow Rate FiO2 03/24/24 22:44 97.9 59 18 127/87 98 Room Air 0 03/24/24 23:59 21 Physical Exam Dictation General: awake, alert, NAD Head/Face: Normocephalic, atraumatic Eyes: PERRL, EOMI ENT: Oral mucosa moist Neck: Trachea midline, supple Cardiovascular: RRR, no edema Respiratory: Symmetrical, non-labored Abdomen: Soft, epigastric/right upper quadrant tenderness with involuntary guarding, non-distended, no guarding. Skin: Warm, dry, good turgor, no rash MS/Extremity: Pulses equal, no cyanosis, neurovascular intact, FROM Neuro: COAx4, GCS 15, steady gait, Psych: Normal behavior, mood, and affect normal Results (Laboratory/Radiology) Laboratory/Radiology Laboratory Tests Test 03/24/24 23:09 03/24/24 23:45 Urine Color LIGHT-YELLOW (YELLOW) Urine Appearance CLEAR (CLEAR) Urine pH 5.5 (5.0-8.0) Urine Specific [place] 1.012 (1.001-1.031) Urine Protein NEGATIVE mg/dL (NEGATIVE) Urine Glucose (UA) NEGATIVE mg/dL (NEGATIVE) Urine Ketones NEGATIVE mg/dL (NEGATIVE) Urine Occult Blood +- (TRACE) (NEGATIVE) H Urine Nitrate NEGATIVE (NEGATIVE) Urine Bilirubin NEGATIVE mg/dL (NEGATIVE) Urine Urobilinogen 0.2 mg/dL (0.2-1.0) Urine Leukocyte Esterase NEGATIVE Amalia/uL Urine RBC 2-5 /HPF (0-1) H Urine WBC 2-5 /HPF (0-1) H Urine Squamous Epithelial Cells FEW /HPF (0-2) Urine Bacteria RARE /HPF (None Seen) Urine HCG, Qualitative NEGATIVE (NEGATIVE) White Blood Count 8.7 K/uL (4.8-10.8) Red Blood Count 4.32 MIL/uL (4.00-5.50) Hemoglobin 13.6 g/dL (12.0-16.0) Hematocrit 39.1 % (36-48) Mean Corpuscular Volume 90.5 fL (79-99) Mean Corpuscular Hemoglobin 31.5 pg (27.0-33.0) Mean Corpuscular Hemoglobin Concent 34.8 g/dL (32.0-36.0) Red Cell Distribution Width 11.9 % (11.0-15.5) Platelet Count 239 K/uL (130-400) Mean Platelet Volume 10.2 fL (7.5-10.5) Immature Granulocyte % (Auto) 0.2 % (0-1) Neutrophils (%) (Auto) 65.9 % (40.0-77.0) Lymphocytes (%) (Auto) 24.1 % (21.0-51.0) Monocytes (%) (Auto) 5.7 % (3.0-13.0) Eosinophils (%) (Auto) 3.5 % (0.0-8.0) Basophils (%) (Auto) 0.6 % (0.0-5.0) Neutrophils # (Auto) 5.8 K/uL (1.8-7.7) Lymphocytes # (Auto) 2.1 K/uL (1.0-4.8) Monocytes # (Auto) 0.5 K/uL (0.1-1.0) Eosinophils # (Auto) 0.31 K/uL (0.00-0.70) Basophils # (Auto) 0.05 K/uL (0.00-0.20) Absolute Immature Granulocyte (auto 0.02 K/uL (0-1) Nucleated Red Blood Cells 0.0 % (0.0-0.19) Sodium Level 139 mmol/L (136-145) Potassium Level 3.5 mmol/L (3.5-5.1) Chloride Level 103 mmol/L (101-111) Carbon Dioxide Level 31 mmol/L (21-32) Blood Urea Nitrogen 9 mg/dL (7-18) Creatinine 0.8 mg/dL (0.5-1.0) Glomerular Filtration Rate Calc 99 mL/min (>90) Random Glucose 111 mg/dL (70-105) H Total Calcium 8.3 mg/dL (8.5-10.1) L Total Bilirubin 0.7 mg/dL (0.2-1.0) Aspartate Amino Transf (AST/SGOT) 22 U/L (10-37) Alanine Aminotransferase (ALT/SGPT) 28 U/L (12-78) Alkaline Phosphatase 70 U/L (50-136) Total Protein 7.5 g/dL (6.0-8.3) Albumin 3.2 g/dL (3.5-5.0) L Lipase 63 U/L (16-77) Labs Reviewed?: Yes ED Course ED Course Orders Procedure Category Date Status Time Cbc With Differential LAB 03/24/24 Complete 22:30 Comprehensive LAB 03/24/24 Complete Metabolic Panel 22:30 Urinalysis Profile LAB 03/24/24 Complete 22:30 Lipase LAB 03/24/24 Complete 22:30 Ketorolac PHA 03/24/24 Complete Tromethamine 30mg/Ml 22:30 Dicyclomine Hcl PHA 03/24/24 Complete (Bentyl 20mg Inj) 22:30 Ondansetron 4mg Inj PHA 03/24/24 Complete (Zofran 4mg Inj) 22:30 Us Abdominal Ruq\Ltd US 03/24/24 Taken 22:30 Ondansetron Odt 4mg PHA 03/24/24 Complete Tab (Zofran 4mg Odt) 22:53 Ondansetron Odt 4mg PHA 03/24/24 Complete Tab (Zofran 4mg Odt) 23:00 Ketorolac PHA 03/24/24 Complete Tromethamine 30mg/Ml 23:00 ,Urine Test LAB 03/24/24 Complete 23:08 Current Medications Medications (Trade) Dose Ordered Sig/Radha Route PRN Reason Start Time Stop Time Status Last Admin Dose Admin Dicyclomine HCl (Bentyl 20mg Inj) 20 mg ONCE ONCE IM 03/24/24 22:30 03/24/24 22:33 DC 03/24/24 23:07 Ketorolac Tromethamine (toRADol) 30 mg ONCE ONCE IM 03/24/24 23:00 03/24/24 23:01 DC 03/24/24 23:07 Ketorolac Tromethamine (toRADol) 30 mg ONCE ONCE IVP 03/24/24 22:30 03/24/24 23:01 DC Ondansetron HCl (zoFRAN 4MG INJ) 4 mg ONCE ONCE IVP 03/24/24 22:30 03/24/24 23:01 DC Ondansetron HCl (zoFRAN 4MG ODT) 4 mg ONCE ONCE SL 03/24/24 23:00 03/24/24 23:01 DC 03/24/24 23:01 Ondansetron HCl (zoFRAN 4MG ODT) 4 mg STK-MED ONCE .ROUTE 03/24/24 22:53 03/24/24 22:53 DC Vital Signs Date Time Temp Pulse Resp B/P (MAP) Pulse Ox O2 Delivery O2 Flow Rate FiO2 03/24/24 23:59 98.1 58 19 110/73 98 Room Air* 0 21 03/24/24 22:44 97.9 59 18 127/87 98 Room Air 0 Medical Decision Making MDM MDM: Differential diagnosis: Cholelithiasis, acute cholecystitis, biliary colic Rationale: Tests considered and ordered secondary to shared decision making include: Previous outside records reviewed: Old ER visits. Risk of complication and/or morbidity or mortality of patient management: None Medications-Per medication reconciliation Need for hospitalization: Patient does not meet criteria for hospitalization. Need for emergency major/minor surgery: No There are no social concerns with this patient. Prescription drug management Prescriptions will include symptomatic care Patient's prior external medical records from other ER visits were reviewed by jaylen patino as indicated. Prior testing and results from previous visits were reviewed. Prior tests were taken into account with medical decision making and resource utilization, independent historian/historians were used to obtain complete medical history. I independently interpreted the test that were performed, results were reviewed by me and considered findings on radiology if ordered. Medical management and examination interpretation discussions were had by me with other qualified healthcare professionals as indicated for the patient's care. DX & DISP Disposition: Discharge Departure Impression: Primary Impression: Cholelithiasis without cholecystitis Condition: Stable Scripts Dicyclomine HCl (Bentyl) 10 Mg Cap 1 CAP PO TID for Abdominal pain for 30 Days, #12 CAP 0 Refills Prov: TREVOR RUBIO 03/25/24 Ondansetron (Ondansetron Odt) 4 Mg Tab.rapdis 4 MG PO Q6HPRN PRN for nausea, #16 TAB 0 Refills Prov: TREVOR RUBIO 03/25/24 Referrals: MARY APONTE MD (PCP) TREVOR RUBIO Mar 24, 2024 23:44
[2024-03-24 23:45] LABS: APPEARANCE,URINE CLEAR (CLEAR); BILIRUBIN,URINE NEGATIVE (NEGATIVE); COLOR,URINE LIGHT-YELLOW (YELLOW); GLUCOSE, URINE (UA) NEGATIVE (NEGATIVE); KETONES,URINE NEGATIVE (NEGATIVE); LEUKOCYTE ESTERASE ,URINE NEGATIVE Leu/uL (NEGATIVE); NITRATE,URINE NEGATIVE (NEGATIVE); PH,URINE 5.5 (5.0-8.0); PROTEIN,URINE NEGATIVE (NEGATIVE); UROBILINOGEN,URINE 0.2 mg/dL (0.2-1.0)
[2024-03-24 23:48] LABS: ADD UA MICROSCOPIC YES
[2024-03-24 23:51] LABS: BACTERIA,URINE RARE /HPF (None Seen); MUCUS,URINE RARE LPF (None Seen); SQUAMOUS EPITHELIAL CELL,UR FEW /HPF (0-2)
[2024-03-24 23:53] LABS: BASOPHILS # (AUTO) 0.05 K/uL (0.00-0.20); BASOPHILS % (AUTO) 0.6 % (0.0-5.0); EOSINOPHILS # (AUTO) 0.31 K/uL (0.00-0.70); EOSINOPHILS % (AUTO) 3.5 % (0.0-8.0); HEMATOCRIT 39.1 % (36-48); IMMATURE GRANULOCYTE ABSOLUTE 0.02 K/uL (0-1); LYMPHOCYTES # (AUTO) 2.1 K/uL (1.0-4.8); LYMPHOCYTES % (AUTO) 24.1 % (21.0-51.0); MEAN CORPUSCULAR HEMOGLOBIN 31.5 pg (27.0-33.0); MEAN CORPUSCULAR HGB CONC 34.8 g/dL (32.0-36.0); MEAN CORPUSCULAR VOLUME 90.5 fL (79-99); MONOCYTES # (AUTO) 0.5 K/uL (0.1-1.0); MONOCYTES % (AUTO) 5.7 % (3.0-13.0); NEUTROPHILS # (AUTO) 5.8 K/uL (1.8-7.7); NEUTROPHILS % (AUTO) 65.9 % (40.0-77.0); PLATELET COUNT (AUTO) 239 K/uL (130-400); RED BLOOD CELL COUNT(AUTO) 4.32 MIL/uL (4.00-5.50); RED CELL DISTRIBUTION WIDTH 11.9 % (11.0-15.5); WHITE BLOOD COUNT (AUTO) 8.7 K/uL (4.8-10.8)
[2024-03-24 23:59] VITALS: BP 110/73; PULSE 58; RESP 19; TEMP 98; O2SAT 98
[2024-03-25 00:13] LABS: CREATININE 0.8 mg/dL (0.5-1.0); POTASSIUM 3.5 mmol/L (3.5-5.1)
[2024-03-25 00:17] LABS: ALBUMIN 3.2 g/dL (3.5-5.0); BILIRUBIN,TOTAL 0.7 mg/dL (0.2-1.0); TOTAL PROTEIN, SERUM 7.5 g/dL (6.0-8.3)
[2024-03-25] MEDS ORDERED: ONDA-243 PO (00:26)
[2024-03-25] MEDS ORDERED: DICY10 PO (00:26)
--- NOTE | 2024-03-25 08:15 | HMCIMG ---
Right upper quadrant ultrasound Clinical Information: ruq pain Comparison: None. Findings: The liver shows fatty infiltration and is otherwise unremarkable. Doppler evaluation shows patent portal and hepatic veins. The gallbladder shows cholelithiasis. No bile duct dilatation is noted. The gallbladder wall measures 3 mm mm. The common bile duct measures 3 mm mm. The right kidney measures 10 x 5 cm. The right kidney shows no hydronephrosis or calculi, masses or other abnormalities. The pancreas is unremarkable. The spleen is unremarkable. The aorta and inferior vena cava show no significant abnormalities. IMPRESSION: FATTY LIVER INFILTRATION. Cholelithiasis. OTHERWISE NORMAL ABDOMINAL ULTRASOUND.
== END 2024-03-25 00:31 | disposition home or self-care (01) ==
LOC: EDH 21:48
DX: K80.20 Calculus of gallbladder without cholecystitis without obstruction (principal); Z79.52 Long term (current) use of systemic steroids
CPT/HCPCS: 99285; 76705; 80053; 83690; 85025; 81001; 81025; 36415; 96372 ×2; J1885; J0500; J2405

== ENCOUNTER 2024-04-16 03:09 | Inpatient (IN) | payer OTHER ==
[~2024-04-16] VITALS: Ht 167.6 cm; Wt 115.2 kg
[~2024-04-16 03:09] MED LIST changes: +DICY10 PO
[2024-04-16] MEDS: 0.9%NACL 1000ML 1,000 ML IV ONE (03:44)
[2024-04-16] MEDS: ondanSETRON 4MG INJ IVP ONE ×2 (03:44→06:29)
[2024-04-16] MEDS: FAMOTIDINE 20MG VIAL IV ONE (03:44)
[2024-04-16 04:00] LABS: BASOPHILS # (AUTO) 0.06 K/uL (0.00-0.20); BASOPHILS % (AUTO) 0.7 % (0.0-5.0); EOSINOPHILS % (AUTO) 3.6 % (0.0-8.0); HEMATOCRIT 43.2 % (36-48); IMMATURE GRANULOCYTE ABSOLUTE 0.03 K/uL (0-1); LYMPHOCYTES # (AUTO) 2.7 K/uL (1.0-4.8); MEAN CORPUSCULAR HEMOGLOBIN 30.8 pg (27.0-33.0); MEAN CORPUSCULAR VOLUME 90.6 fL (79-99); MONOCYTES # (AUTO) 0.6 K/uL (0.1-1.0); MONOCYTES % (AUTO) 6.7 % (3.0-13.0); NEUTROPHILS # (AUTO) 4.7 K/uL (1.8-7.7); NEUTROPHILS % (AUTO) 56.6 % (40.0-77.0); PLATELET COUNT (AUTO) 302 K/uL (130-400); RED BLOOD CELL COUNT(AUTO) 4.77 MIL/uL (4.00-5.50); RED CELL DISTRIBUTION WIDTH 12.2 % (11.0-15.5); WHITE BLOOD COUNT (AUTO) 8.3 K/uL (4.8-10.8)
[2024-04-16 04:11] LABS: APPEARANCE,URINE CLEAR (CLEAR); BILIRUBIN,URINE NEGATIVE (NEGATIVE); COLOR,URINE LIGHT-YELLOW (YELLOW); GLUCOSE, URINE (UA) NEGATIVE (NEGATIVE); KETONES,URINE NEGATIVE (NEGATIVE); LEUKOCYTE ESTERASE ,URINE NEGATIVE Leu/uL (NEGATIVE); NITRATE,URINE NEGATIVE (NEGATIVE); OCCULT BLOOD,URINE SMALL (NEGATIVE); PROTEIN,URINE NEGATIVE (NEGATIVE); UROBILINOGEN,URINE 0.2 mg/dL (0.2-1.0)
[2024-04-16 04:12] LABS: ALBUMIN 3.7 g/dL (3.5-5.0); BILIRUBIN,DIRECT 0.1 mg/dL (0.0-0.3); BILIRUBIN,TOTAL 0.7 mg/dL (0.2-1.0); CREATININE 0.7 mg/dL (0.5-1.0); POTASSIUM 3.5 mmol/L (3.5-5.1); TOTAL PROTEIN, SERUM 8.4 g/dL (6.0-8.3)
[2024-04-16 04:13] LABS: ADD UA MICROSCOPIC YES
[2024-04-16 04:18] LABS: BACTERIA,URINE RARE /HPF (None Seen); MUCUS,URINE RARE LPF (None Seen); RBC,URINE 0-1 /HPF (0-1); SQUAMOUS EPITHELIAL CELL,UR FEW /HPF (0-2)
[2024-04-16] MEDS: ketOROlac 15MG/ML VIAL (15MG/ML) IV ONE (04:47)
[2024-04-16] MEDS: PANTOPrazole 40 MG/VIAL IVP ONE (04:47)
[2024-04-16] MEDS: DICYCLOMINE 20MG (10MG/ML) AMP IM ONE (04:48)
[2024-04-16] MEDS ORDERED: IOHEXOL 350 MG/ML 100ML INFUS..BTL IV ONE (05:02)
--- NOTE | 2024-04-16 05:46 | ERN ---
General Chief Complaint: Abdominal Pain Stated Complaint: C/O RUQ PAIN RADIATING TO BACK W/ N X V Time Seen by MD: 03:11 Time Seen by Midlevel: 03:11 Source: patient History of Present Illness Initial Comments Patient is a 34-year-old female with a past medical history of gallstones presenting to the emergency department with right upper quadrant abdominal pain that radiates to her back and lower abdomen. She reports associated nausea and vomiting. She states her last meal was at 6:00 p.m. yesterday. The pain will growth from her sleep. She was seen in our ER proximally two weeks ago for the same complaint and was discharged home with a diagnosis of cholelithiasis. Allergies: Coded Allergies: No Known Allergies (Unverified Allergy, Unknown, 02/05/22) Home Meds Active Scripts Dicyclomine HCl (Bentyl) 10 Mg Cap, 1 CAP PO TID for Abdominal pain for 30 Days, #12 CAP 0 Refills Prov:TREVOR RUBIO 03/25/24 Ondansetron (Ondansetron Odt) 4 Mg Tab.rapdis, 4 MG PO Q6HPRN PRN for nausea, #16 TAB 0 Refills Prov:TREVOR RUBIO 03/25/24 Hydrocodone/Acetaminophen (Hydrocodon-Acetaminophen 5-325) 5 Mg-325 Mg Tablet, 1 EACH PO q8 for pain, #5 TAB 0 Refills Prov:JR POOL MD 12/28/23 Enzymes,Digestive (Digestive Wellness) 1 Each Capsule, 1 EACH PO DAILY, #30 CAP Prov:JR POOL MD 12/28/23 Cephalexin Monohydrate (Keflex) 500 Mg Cap, 1 CAP PO BID for 10 Days, #20 CAP 0 Refills Prov:EMELYN GALLO MD 12/08/23 Hydrocodone/Acetaminophen (Hydrocodon-Acetaminoph 7.5-325) 7.5 Mg-325 Mg Tablet, 1 EACH PO TID PRN for PAIN for 10 Days, #20 TAB Prov:VICTORIANO BLOCK DO 07/17/23 Dicyclomine HCl (Bentyl) 20 Mg Tab, 20 MG PO QID for abd pain, #20 TAB Prov:VICTORIANO BLOCK DO 07/17/23 Ondansetron (Ondansetron Odt) 4 Mg Tab.rapdis, 4 MG PO TID for nausea/vomiting for 10 Days, #10 TAB Prov:VICTORIANO BLOCK DO 07/17/23 Ibuprofen (Ibuprofen 800 mg Tab) 800 Mg Tab, 800 MG PO Q6H PRN for PAIN, #30 TAB Prov:VICTORIANO BLOCK DO 07/17/23 Ondansetron (Ondansetron Odt) 4 Mg Tab.rapdis, 4 MG PO TID PRN for NAUSEA, #30 TAB 0 Refills Prov:VERNA WAKEFIELD MD 02/07/23 Ibuprofen (Ibuprofen) 600 Mg Tablet, 600 MG PO Q6H PRN for PAIN, #40 TAB 0 Refills Prov:VERNA WAKEFIELD MD 02/07/23 Prednisone (Prednisone) 5 Mg Tablet, 5 MG PO BID for 7 Days, #14 TAB Prov:EMELYN GALLO MD 02/05/22 Amoxicillin (Amoxicillin) 500 Mg Capsule, 500 MG PO TID for 7 Days, #21 CAP Prov:EMELYN GALLO MD 02/05/22 Past Medical History Past Medical History: Other Medical History Other: THYROID DISEASE Past Surgical History: Unknown Family History Family History: Negative Social History Social History: Negative Female( History) LMP: Apr 15, 2024 ROS Dictation CONSTITUTIONAL: Negative except for HPI HEAD/FACE: Negative except for HPI EENT: Negative except for HPI RESPIRATORY: Negative except for HPI GASTROINTESTINAL/ABDOMINAL: Negative except for HPI GENITOURINARY: Negative except for HPI MUSCULOSKELETAL: Negative except for HPI INTEGUMENTARY: Negative except for HPI NEUROLOGICAL/PSYCH: Negative except for HPI HEMATOLOGIC/LYMPHATIC: Negative except for HPI All Systems Negative, Except as noted above. 13 point review of systems assessed and all negative except for above. Physical Exam Physical Exam Dictation Vital Signs reviewed General Appearance: Alert, oriented x 3, no acute distress, well developed, nourished. Head and Face: non-traumatic. Eyes: PERRL, pink conjunctivas, eyelid no trauma, anterior chamber with arcus senilis. Ears: Pinnas intact and no signs of trauma or erythema ear canals clear and no discharge TM no erythema Nose: No discharge, no bleeding. Oropharynx: Mouth normal, tongue pink, pharynx clear,no erythema, tonsils no exudates, no abscesses noted, mucous membrane moist Neck: Supple, non-tender, no thyromegaly, no masses, no JVD, no bruits Breast:Deferred Chest:No tenderness, no crepitus, no paradoxical movement, no retractions Lungs:Clear, well-ventilated, symmetric, no rales, no wheezing, no rhonchi, no stridor, good breath sounds bilaterally Heart: Regular rate, regular rhythm, no murmur, no gallops Vascular: no peripheral edema, Abdomen: Soft, positive bowel sounds, nondistended, no guarding, Suprapubic abdominal tenderness, right upper quadrant abdominal tenderness, positive Cyr sign, no rebound, no masses no hepatomegaly, no splenomegaly, no hernias. Rectal: Deferred Genital: Deferred Neurological: Normal speech, motor function intact, sensory function intact Musculoskeletal: Neck nontender, full range of motion, back nontender, full range of motion, Extremities: nontender, full range of motion Skin: Color pink, dry, no turgor, no rash, no lacerations, no abrasions, no con tusions. Lymphatic: Deferred Results Laboratory and Microbiology Lab and Micro Result Laboratory Tests Test 04/16/24 03:45 White Blood Count 8.3 K/uL (4.8-10.8) Red Blood Count 4.77 MIL/uL (4.00-5.50) Hemoglobin 14.7 g/dL (12.0-16.0) Hematocrit 43.2 % (36-48) Mean Corpuscular Volume 90.6 fL (79-99) Mean Corpuscular Hemoglobin 30.8 pg (27.0-33.0) Mean Corpuscular Hemoglobin Concent 34.0 g/dL (32.0-36.0) Red Cell Distribution Width 12.2 % (11.0-15.5) Platelet Count 302 K/uL (130-400) Mean Platelet Volume 10.1 fL (7.5-10.5) Immature Granulocyte % (Auto) 0.4 % (0-1) Neutrophils (%) (Auto) 56.6 % (40.0-77.0) Lymphocytes (%) (Auto) 32.0 % (21.0-51.0) Monocytes (%) (Auto) 6.7 % (3.0-13.0) Eosinophils (%) (Auto) 3.6 % (0.0-8.0) Basophils (%) (Auto) 0.7 % (0.0-5.0) Neutrophils # (Auto) 4.7 K/uL (1.8-7.7) Lymphocytes # (Auto) 2.7 K/uL (1.0-4.8) Monocytes # (Auto) 0.6 K/uL (0.1-1.0) Eosinophils # (Auto) 0.30 K/uL (0.00-0.70) Basophils # (Auto) 0.06 K/uL (0.00-0.20) Absolute Immature Granulocyte (auto 0.03 K/uL (0-1) Nucleated Red Blood Cells 0.0 % (0.0-0.19) Urine Color LIGHT-YELLOW (YELLOW) Urine Appearance CLEAR (CLEAR) Urine pH 5.0 (5.0-8.0) Urine Specific [place] 1.016 (1.001-1.031) Urine Protein NEGATIVE mg/dL (NEGATIVE) Urine Glucose (UA) NEGATIVE mg/dL (NEGATIVE) Urine Ketones NEGATIVE mg/dL (NEGATIVE) Urine Occult Blood SMALL (NEGATIVE) H Urine Nitrate NEGATIVE (NEGATIVE) Urine Bilirubin NEGATIVE mg/dL (NEGATIVE) Urine Urobilinogen 0.2 mg/dL (0.2-1.0) Urine Leukocyte Esterase NEGATIVE Amalia/uL Urine RBC 0-1 /HPF (0-1) Urine WBC 2-5 /HPF (0-1) H Urine Squamous Epithelial Cells FEW /HPF (0-2) Urine Bacteria RARE /HPF (None Seen) Sodium Level 139 mmol/L (136-145) Potassium Level 3.5 mmol/L (3.5-5.1) Chloride Level 104 mmol/L (101-111) Carbon Dioxide Level 29 mmol/L (21-32) Blood Urea Nitrogen 7 mg/dL (7-18) Creatinine 0.7 mg/dL (0.5-1.0) Glomerular Filtration Rate Calc 116 mL/min (>90) Random Glucose 110 mg/dL (70-105) H Total Calcium 8.7 mg/dL (8.5-10.1) Total Bilirubin 0.7 mg/dL (0.2-1.0) Direct Bilirubin 0.1 mg/dL (0.0-0.3) Aspartate Amino Transf (AST/SGOT) 23 U/L (10-37) Alanine Aminotransferase (ALT/SGPT) 32 U/L (12-78) Alkaline Phosphatase 88 U/L (50-136) Total Protein 8.4 g/dL (6.0-8.3) H Albumin 3.7 g/dL (3.5-5.0) Lipase 49 U/L (16-77) Serum Test, Qualitative NEGATIVE (NEGATIVE) Labs Reviewed?: Yes MDM MDM: Differential diagnosis: Acute cholecystitis, pancreatitis, cholelithiasis, biliary colic Rationale: Tests considered and ordered secondary to shared decision making include: Previous outside records reviewed: Old ER visits. Risk of complication and/or morbidity or mortality of patient management: None Medications-Per medication reconciliation Need for hospitalization: Patient does meet criteria for hospitalization. Need for emergency major/minor surgery: No There are no social concerns with this patient. Prescription drug management Prescriptions will include symptomatic care Patient's prior external medical records from other ER visits were reviewed by me as indicated. Prior testing and results from previous visits were reviewed. Prior tests were taken into account with medical decision making and resource utilization, independent historian/historians were used to obtain complete medical history. I independently interpreted the test that were performed, results were reviewed by me and considered findings on radiology if ordered. Medical management and examination interpretation discussions were had by me with other qualified healthcare professionals as indicated for the patient's care. ED Course Orders Procedure Category Date Status Time Cbc With Differential LAB 04/16/24 Complete 03:22 Basic Metabolic Panel LAB 04/16/24 Complete 03:22 Hepatic Function Panel LAB 04/16/24 Complete 03:22 Lipase LAB 04/16/24 Complete 03:22 Testing, LAB 04/16/24 Complete Serum Hcg 03:22 Urinalysis Profile LAB 04/16/24 Complete 03:22 Ketorolac PHA 04/16/24 Complete Tromethamine 15mg/Ml 03:30 Ondansetron 4mg Inj PHA 04/16/24 Complete (Zofran 4mg Inj) 03:30 Famotidine 20mg Vial PHA 04/16/24 Complete (Pepcid 20mg Vial) 03:30 Us Abdominal Ruq\Ltd US 04/16/24 Taken 03:22 Ct Abdomen/Pelvis CT 04/16/24 Logged W/Contrast 03:22 0.9%Nacl 1000ml (Ns PHA 04/16/24 Complete 1000ml) 03:30 Pantoprazole 40mg Inj PHA 04/16/24 Complete (Protonix 40mg Inj 04:30 Dicyclomine Hcl PHA 04/16/24 Complete (Bentyl 20mg Inj) 04:30 Iohexol (Omnipaque) PHA 04/16/24 Complete 05:02 Current Medications Medications (Trade) Dose Ordered Sig/Radha Route PRN Reason Start Time Stop Time Status Last Admin Dose Admin Dicyclomine HCl (Bentyl 20mg Inj) 10 mg ONCE ONCE IM 04/16/24 04:30 04/16/24 04:31 DC 04/16/24 04:48 Famotidine (Pepcid 20mg Vial) 20 mg ONCE ONCE IV 04/16/24 03:30 04/16/24 03:34 DC 04/16/24 03:44 Iohexol (Omnipaque) 35,000 mg STK-MED ONCE IV 04/16/24 05:02 04/16/24 05:08 DC Ketorolac Tromethamine (toRADol) 15 mg ONCE ONCE IV 04/16/24 03:30 04/16/24 03:35 DC 04/16/24 04:47 Ondansetron HCl (zoFRAN 4MG INJ) 4 mg ONCE ONCE IVP 04/16/24 03:30 04/16/24 03:34 DC 04/16/24 03:44 Pantoprazole Sodium (PROTonix 40MG INJ) 40 mg ONCE ONCE IVP 04/16/24 04:30 04/16/24 04:31 DC 04/16/24 04:47 Sodium Chloride 1,000 ml @ 0 mls/hr ONCE ONCE IV 04/16/24 03:30 04/16/24 03:34 DC 04/16/24 03:44 Vital Signs Date Time Temp Pulse Resp B/P (MAP) Pulse Ox O2 Delivery O2 Flow Rate FiO2 04/16/24 03:48 98.4 64 20 144/89 98 Room Air* 0 21 04/16/24 03:10 97.5 64 24 144/89 98 Room Air DX & DISP Disposition: Inpatient Decision to Admit Date: Apr 16, 2024 Departure Impression: Primary Impression: Cholelithiasis Additional Impressions: Uterine mass, Abdominal pain Condition: Stable Referrals: MARY APONTE MD (PCP) I have reviewed the case, and I agree with, Diagnosis and Plan I performed the substantive portion of the visit. I have reviewed and personally made and approve the management plan that is documented in the note by myself or the TY. I acknowledge for responsibility for the patient's management plan. YAAKOV TENA Apr 16, 2024 05:46
[2024-04-16] MEDS: hydroMORPHone 0.5 MG SYG (0.5MG/0.5ML) IVP ONE (06:29)
[2024-04-16] MEDS: 0.9%NACL 1000ML 1,000 ML IV SCH (06:29)
--- NOTE | 2024-04-16 06:49 | NUR ---
REPORT GIVEN TO TREVOR DA SILVA
--- NOTE | 2024-04-16 07:00 | NUR ---
REPORT RECEIVED FROM [employer] AVINASH ANGEL. PT IN ROOM 329, AOX4, 18G TO RAC,SL, PARENTS AT BEDSIDE,SKIN INTACT, REDIRECT PT IS NPO DUE TO ABDOMINAL PAIN AND ANY POSSIBILITIES OR PROCEDURE TO BE DONE, VERBALIZED UNDERSTANDING. BED LOW AND LOCKED, SIDERAILS X2 UP, CALL LIGHT WITHIN REACH AND LET PT KNOW I WILL RETURN TO DO ADMISSION ASSESSMENT. VERBALIZED UNDERSTANDING.
[2024-04-16 08:00] VITALS: O2SAT 97
--- NOTE | 2024-04-16 08:07 | HMCIMG ---
CT ABDOMEN/PELVIS W/CONTRAST HISTORY: Acute cholecystitis COMPARISON: None TECHNIQUE: Multiple sequential axial images of the abdomen and pelvis were obtained from the dome of the diaphragm through symphysis pubis. Patient was given 100 cc of Isovue through intravenous route. Oral contrast was not given. FINDINGS: No pleural effusion is seen bilaterally. There is no evidence of parenchymal disease or pulmonary nodule of the visualized lower lungs. Degenerative changes of the thoracolumbar spine are present. The heart is not enlarged. The liver is enlarged with fatty changes measuring 21 cm. Gallstone is seen in the gallbladder. The liver, spleen, adrenal glands and pancreas are unremarkable. There is no evidence of hydronephrosis bilaterally. No evidence of renal stone is seen. Fecal material is seen in the colon. There are normal size retroperitoneal and mesenteric lymph nodes. No ascites is seen. No CT evidence of acute appendicitis is seen. There are multiple large uterine fibroids. Intrauterine device is seen in the lower uterine segment. Pelvic sidewalls are symmetric bilaterally. Bladder is poorly distended. IMPRESSION: 1. Gallstone in the distended gallbladder. Fibroid uterus. CT was performed with one or more following dose reduction techniques: automated exposure control, adjustment of the mA and kv according to patient's size, or use of a iterative reconstruction technique.
[2024-04-16 08:17] VITALS: BP 140/88; PULSE 56; RESP 19; TEMP 97.9
--- NOTE | 2024-04-16 08:43 | HP ---
[facility] HISTORY AND PHYSICAL Date of Service: Apr 16, 2024 Time of Service: 08:18 HISTORY OF PRESENT ILLNESS: [Before year old female with past medical history of hypothyroidism and cholelithiasis recently was in the ED two weeks ago for complaints of abdominal pain nausea and vomiting. She presented to the emergency department with the same issues. She stated that symptoms started again around 6:00 p.m. last night. The pain increased and woke her up in her sleep hence she presented to the emergency department for further evaluation. In the ED, her initial vitals showed temperature of 97.5, pulse 64, respiratory rate 24, blood pressure 144/89, pulse oximetry 98% on room air. Labs reviewed, hematology unremarkable, chemistry: Random glucose 110, total protein 8.4, CT abdomen and pelvis which showed gallstone in the distended bladder. Fibroid uterus. Ultrasound of the abdomen done pending final results but preliminary showed multiple gallstone in the distended gallbladder with positive ultrasound Cyr sign. Suspicious for acute cholecystitis. Patient was referred to the hospitalist for further evaluation and management.] REVIEW OF SYSTEMS CONSTITUTIONAL: Denies fevers, chills, or night sweats. No unintentional weight loss reported. NEUROLOGICAL: Denies headache, amaurosis fugax, motor weakness, sensory deficit , vertigo/spinning sensation, gait abnormalities, or tremors. ENT: No hearing loss, otalgia, otorrhea, rhinitis, rhinorrhea, hoarseness, or sore throat. CARDIOVASCULAR: Denies any exertional angina, dyspnea on exertion, orthopnea, paroxysmal nocturnal dyspnea, palpitations, life-threatening arrhythmias, claudication. PULMONARY: Denies any shortness of breath, cough, phlegm/sputum, hemoptysis, pleuritic chest pain. SLEEP: Denies morning headaches, daytime somnolence or napping. Denies difficulty falling asleep, staying asleep, waking from sleep. Denies knowledge of snoring. GASTROINTESTINAL: Abdominal pain, nausea, vomiting GENITOURINARY: Denies frequency, urgency, nocturia, hematuria or incontinence (Storage/Irritative symptoms.) Low urinary stream, straining to void, urinary intermittency or hesitancy, splitting of the voiding stream, terminal dribbling. ENDOCRINOLOGIC: Denies polyuria, polydipsia, polyphagia or heat/cold intolerances. HEMATOLOGIC: Denies thrombophilia/previous clots, or coagulopathy/bleeding disorders. ONCOLOGIC: Denies personal history of malignancy. DERMATOLOGIC: Denies rashes or pruritus. PSYCHIATRIC: Denies any suicidal or homicidal ideation. Denies hallucinations. PAST MEDICAL HISTORY: [Thyroid disease- Aelxandre ] PAST SURGICAL HISTORY: [ n/a ] PAST SOCIAL HISTORY: [ occasionally drinks alcohol, denies tobacco and illicit drug use. She works for [employer] ] FAMILY HISTORY: [Cardiac disease, Thyroid Disease ] Coded Allergies: No Known Allergies (Unverified Allergy, Unknown, 02/05/22) PHYSICAL EXAM GENERAL APPEARANCE: The patient is awake, alert, and oriented, in no acute cardiopulmonary distress. NEUROLOGICAL: Cranial nerves II-XII grossly intact. Motor is 5/5 in bilateral upper and lower extremities proximal to distal. No sensory deficits. HEENT: Face is symmetric. Pupils are equal and reactive. Extraocular movements are intact. NECK: Supple. No JVD. No thyromegaly. No submental, submandibular, pre-/posta uricular, occipital or supraclavicular lymphadenopathy. CHEST: Normal chest expansion. No Telemetry. LUNGS: Absence of any rales, rhonchi or any wheezing. CARDIOVASCULAR: Regular. S1 and S2 normal. No appreciable rubs, murmurs or gallops. ABDOMEN: Soft, nontender, and nondistended. There is no rebound, voluntary guarding, or rigidity. : Deferred. No Mora. EXTREMITIES: Non-edematous and not cyanotic. No clubbing. Good capillary refill. SKIN: No skin breakdown. Vital Sign (Last 24 Hours) 04/16/24 06:50 Temp 98.2 Pulse 64 Resp 18 B/P (MAP) 149/93 Pulse Ox 96 O2 Delivery Room Air* O2 Flow Rate 0 FiO2 21 LABS: Laboratory: Test 04/16/24 03:45 Range/Units White Blood Count 8.3 4.8-10.8 K/uL Red Blood Count 4.77 4.00-5.50 MIL/uL Hemoglobin 14.7 12.0-16.0 g/dL Hematocrit 43.2 36-48 % Mean Corpuscular Volume 90.6 79-99 fL Mean Corpuscular Hemoglobin 30.8 27.0-33.0 pg Mean Corpuscular Hemoglobin Concent 34.0 32.0-36.0 g/dL Red Cell Distribution Width 12.2 11.0-15.5 % Platelet Count 302 130-400 K/uL Mean Platelet Volume 10.1 7.5-10.5 fL Immature Granulocyte % (Auto) 0.4 0-1 % Neutrophils (%) (Auto) 56.6 40.0-77.0 % Lymphocytes (%) (Auto) 32.0 21.0-51.0 % Monocytes (%) (Auto) 6.7 3.0-13.0 % Eosinophils (%) (Auto) 3.6 0.0-8.0 % Basophils (%) (Auto) 0.7 0.0-5.0 % Neutrophils # (Auto) 4.7 1.8-7.7 K/uL Lymphocytes # (Auto) 2.7 1.0-4.8 K/uL Monocytes # (Auto) 0.6 0.1-1.0 K/uL Eosinophils # (Auto) 0.30 0.00-0.70 K/uL Basophils # (Auto) 0.06 0.00-0.20 K/uL Absolute Immature Granulocyte (auto 0.03 0-1 K/uL Nucleated Red Blood Cells 0.0 0.0-0.19 % Urine Color LIGHT-YELLOW YELLOW Urine Appearance CLEAR CLEAR Urine pH 5.0 5.0-8.0 Urine Specific [place] 1.016 1.001-1.031 Urine Protein NEGATIVE NEGATIVE mg/dL Urine Glucose (UA) NEGATIVE NEGATIVE mg/dL Urine Ketones NEGATIVE NEGATIVE mg/dL Urine Occult Blood SMALL H NEGATIVE Urine Nitrate NEGATIVE NEGATIVE Urine Bilirubin NEGATIVE NEGATIVE mg/dL Urine Urobilinogen 0.2 0.2-1.0 mg/dL Urine Leukocyte Esterase NEGATIVE NEGATIVE Amalia/uL Urine RBC 0-1 0-1 /HPF Urine WBC 2-5 H 0-1 /HPF Urine Squamous Epithelial Cells FEW 0-2 /HPF Urine Bacteria RARE None Seen /HPF Sodium Level 139 136-145 mmol/L Potassium Level 3.5 3.5-5.1 mmol/L Chloride Level 104 101-111 mmol/L Carbon Dioxide Level 29 21-32 mmol/L Blood Urea Nitrogen 7 7-18 mg/dL Creatinine 0.7 0.5-1.0 mg/dL Glomerular Filtration Rate Calc 116 >90 mL/min Random Glucose 110 H 70-105 mg/dL Total Calcium 8.7 8.5-10.1 mg/dL Total Bilirubin 0.7 0.2-1.0 mg/dL Direct Bilirubin 0.1 0.0-0.3 mg/dL Aspartate Amino Transf (AST/SGOT) 23 10-37 U/L Alanine Aminotransferase (ALT/SGPT) 32 12-78 U/L Alkaline Phosphatase 88 50-136 U/L Total Protein 8.4 H 6.0-8.3 g/dL Albumin 3.7 3.5-5.0 g/dL Lipase 49 16-77 U/L Serum Test, Qualitative NEGATIVE NEGATIVE Current Medications Medications (Trade) Dose Ordered Sig/Radha Route PRN Reason Start Time Stop Time Status Last Admin Dose Admin Famotidine (Pepcid 20mg Vial) 20 mg BID IV 04/16/24 09:00 05/16/24 08:59 Ketorolac Tromethamine (toRADol) 15 mg Q6H PRN IV MODERATE PAIN (4-6) 04/16/24 06:30 04/21/24 06:29 Sodium Chloride 1,000 ml @ 100 mls/hr Q10H IV 04/16/24 06:30 05/16/24 06:29 04/16/24 06:29 100 MLS/HR DIAGNOSTICS / RADIOLOGY: [ ] ASSESSMENT: [Suspected acute cholecystitis, POA Intractable nausea and vomiting, POA ] PLAN: [Admit to medical-surgical Keep patient NPO Continue with IV fluids with NS at 100 mL/hour We will start patient on IV antibiotics prophylactically with Zosyn every 8 hours We will monitor electrolytes and replete as necessary We will repeat labs tomorrow We will request general surgeon for further recommendation We will we will order HIDA scan GI and DVT prophylaxis Add when necessary meds for nausea, vomiting, pain, constipation, insomnia. Full code Case discussed with Dr. Jean, above plan was formulated ADVANCED CARE PLANNING 1. Which of the following were discussed? Hospice Care - Yes / No Therapeutic options - Yes / No Advance Directives - Yes / No Other discussions - 2. Discussed with who? Patient 3. Voluntary nature of this service was explained to the patient? Yes / No 4. Amount of time spent - __20 mins 5. Reviewed by Physician? (if this service was performed by NPP) Yes / No ] ATTESTATION BY PHYSICIAN I have seen and examined the patient. I reviewed the documentation, medical decision making, and treatment plan as noted by the mid-level provider above. I agree with the findings and plan of care. CHUN JEAN MD, JANICE B [facility] Apr 16, 2024 08:43
--- NOTE | 2024-04-16 09:04 | HMCIMG ---
US ABDOMINAL RUQ\E\LTD HISTORY: No additional history given. COMPARISON: None TECHNIQUE: Right upper quadrant abdominal ultrasound study was performed. FINDINGS: Abdominal aorta and inferior vena cava are unremarkable. The visualized portion of the pancreas is within normal limits. Liver is echogenic consistent with liver parenchymal disease. Gallstones are seen in the distended gallbladder. Common duct is not seen due to overlying bowel gas. No evidence of gallbladder wall thickening is seen. Right kidney measures 9.7 x 4.8 x 4.4 cm. No hydronephrosis is seen of the right kidney. The study is limited due to overlying bowel gas and patient's underlying condition. IMPRESSION: 1. Gallstones in the distended gallbladder. Common duct is not seen limiting evaluation. 2. No hydronephrosis is seen.
[2024-04-16] MEDS: ketOROlac 15MG/ML VIAL (15MG/ML) IV PRN (09:07)
[2024-04-16] MEDS: FAMOTIDINE 20MG VIAL IV SCH (09:07)
[2024-04-16 12:00] VITALS: BP 117/78; PULSE 62; RESP 16; TEMP 98
[2024-04-16] MEDS ORDERED: acetaMINOPHEN 500 MG TABLET PO PRN (12:30)
[2024-04-16 12:34] LABS: INR 1.02 (0.85-1.15); PROTHROMBIN TIME 10.8 SEC (9.6-11.6)
[2024-04-16] MEDS: cefTRIAXone 1G VIAL IVPB SCH (13:05)
[2024-04-16] MEDS: metRONIDazole 500MG/100ML BAG IV SCH (14:01)
[2024-04-16] MEDS: PoTASSium chloRIDE 20MEQ/100ML 100 ML IV ONE (15:42)
[2024-04-16 16:00] VITALS: BP 106/75; PULSE 66; RESP 20; TEMP 98.5
--- NOTE | 2024-04-16 19:35 | NUR ---
RECEIVED REPORT RECEIVED FROM AVINASH ARREDONDO. NURSE'S ROUNDS DONE. PT AWAITING FOR COUNCIL MEMBER TO BRING HER DOWN FOR SECOND SCAN FOR HIDA SCAN. KEPT NPO. FAMILY STILL AT BEDSIDE.
[2024-04-16 20:00] VITALS: BP 114/71; PULSE 61; RESP 18; TEMP 98.4
[2024-04-16 21:30] VITALS: O2SAT 96
--- NOTE | 2024-04-16 21:30 | NUR ---
MEDS HIDA SCAN ALREADY COMPLETED AND PT IS BACK IN ROOM. SHIFT ASSESSMENT DONE, PLEASE REFER TO CHART. PT REQUESTING PIV TO BE CHANGED IT IS VERY TENDER IN SITE. DISCONTINUED PIV WITH CATHETER INTACT. RE-INSERTED G20 TO RT HAND, TOLERATED WELL. CONTINUED IVF OF NS AT 100CC/HR. DUE MEDS ADMINISTERED, TOLERATED. WELL. KEPT RESTED AND COMFORTABLE IN BED. CALL LIGHT WITHIN REACH. PT VERBALIZES WILL TAKE SHOWER IN AM. KEPT NPO.
[2024-04-17] VITALS (27 sets, daily range): BP systolic 92–150; BP diastolic 55–94; PULSE 54–78; RESP 15–20; TEMP 97.5–98.2; O2SAT 95–97
[2024-04-17] MEDS ORDERED: LEVO25TA4 PO (01:40)
[2024-04-17] MEDS ORDERED: LEVO200 PO (01:40)
--- NOTE | 2024-04-17 05:20 | NUR ---
ROUNDS PT STILL ASLEEP, NO DISTRESS NOTED. KEPT NPO FOR PLANNED SX. FOR MORE CARE.
--- NOTE | 2024-04-17 07:51 | HMCIMG ---
HEPATOBILIARY SCAN INDICATION: Right upper abdominal pain COMPARISON: None RADIOPHARMACEUTICAL: Tc99m Choletec DOSE: 7.0 mCi given IV. TECHNIQUE: Abdominal functional images were obtained and submitted for interpretation. FINDINGS: Functional images obtained up to 3 hours showed normal hepato-intestinal transit time, but no accumulation of activity within the gallbladder. IMPRESSION: Acute calculus cholecystitis.
[2024-04-17] MEDS ORDERED: BUPIvacaine/PF 0.5% 30ML VIAL ONE (09:29)
[2024-04-17] MEDS ORDERED: MIDAZOLAM HCL 1 MG/ML 2ML VIAL ONE (09:34)
[2024-04-17] MEDS ORDERED: LIDOCAINE PF 100MG/5ML (2%) SYRINGE 5ML ONE (09:34)
[2024-04-17] MEDS ORDERED: rocuRONium bROMide 10MG/1ML 5ML VL ONE (09:35)
[2024-04-17] MEDS ORDERED: proPOFol 10 MG/ML 20ML VIAL IV ONE (09:35)
[2024-04-17] MEDS ORDERED: FENTanyl CITRate PF 50 MCG/1 ML 2ML VIAL ONE ×2 (09:35→10:24)
[2024-04-17] MEDS ORDERED: SUCCINYLCHOLINE CHLORIDE 20 MG/ML 10 ML VIAL ONE (09:35)
[2024-04-17] MEDS ORDERED: GLYCOPYRROLATE 0.2 MG/ML 5 ML VIAL ONE (09:56)
[2024-04-17] MEDS: cefTRIAXone 1G VIAL IVPB ONE (10:05)
[2024-04-17] MEDS ORDERED: ondanSETRON 4MG INJ ONE (10:15)
[2024-04-17] MEDS ORDERED: ketOROlac 30MG VIAL (30MG/ML) ONE (10:25)
--- NOTE | 2024-04-17 10:27 | PN ---
[facility] PROGRESS NOTE Date of Service: Apr 17, 2024 Time of Service: 10:27 SUBJECTIVE: [34-year-old female admitted for acute cholecystitis, she went for laparoscopic cholecystectomy with Dr. Castellano. No acute event reported overnight, we will follow post op orders from Dr. Castellano. Encouraged ambulation and IS. Labs ordered for today ] REVIEW OF SYSTEMS CONSTITUTIONAL: Denies fevers, chills, or night sweats. No unintentional weight loss reported. NEUROLOGICAL: Denies headache, amaurosis fugax, motor weakness, sensory deficit, vertigo/spinning sensation, gait abnormalities, or tremors. ENT: No hearing loss, otalgia, otorrhea, rhinitis, rhinorrhea, hoarseness, or sore throat. CARDIOVASCULAR: Denies any exertional angina, dyspnea on exertion, orthopnea, paroxysmal nocturnal dyspnea, palpitations, life-threatening arrhythmias, claudication. PULMONARY: Denies any shortness of breath, cough, phlegm/sputum, hemoptysis, pleuritic chest pain. SLEEP: Denies morning headaches, daytime somnolence or napping. Denies difficulty falling asleep, staying asleep, waking from sleep. Denies knowledge of snoring. GASTROINTESTINAL: Abdominal pain, nausea, vomiting GENITOURINARY: Denies frequency, urgency, nocturia, hematuria or incontinence (Storage/Irritative symptoms.) Low urinary stream, straining to void, urinary intermittency or hesitancy, splitting of the voiding stream, terminal dribbling. ENDOCRINOLOGIC: Denies polyuria, polydipsia, polyphagia or heat/cold intolerances. HEMATOLOGIC: Denies thrombophilia/previous clots, or coagulopathy/bleeding disorders. ONCOLOGIC: Denies personal history of malignancy. DERMATOLOGIC: Denies rashes or pruritus. PSYCHIATRIC: Denies any suicidal or homicidal ideation. Denies hallucinations. PHYSICAL EXAM GENERAL APPEARANCE: The patient is awake, alert, and oriented, in no acute cardiopulmonary distress. NEUROLOGICAL: Cranial nerves II-XII grossly intact. Motor is 5/5 in bilateral upper and lower extremities proximal to distal. No sensory deficits. HEENT: Face is symmetric. Pupils are equal and reactive. Extraocular movements are intact. NECK: Supple. No JVD. No thyromegaly. No submental, submandibular, pre- /postauricular, occipital or supraclavicular lymphadenopathy. CHEST: Normal chest expansion. No Telemetry. LUNGS: Absence of any rales, rhonchi or any wheezing. CARDIOVASCULAR: Regular. S1 and S2 normal. No appreciable rubs, murmurs or gallops. ABDOMEN: Soft, nontender, and nondistended. There is no rebound, voluntary guarding, or rigidity. : Deferred. No Mora. EXTREMITIES: Non-edematous and not cyanotic. No clubbing. Good capillary refill. SKIN: No skin breakdown. Vital Signs (last 8hr) Date Time Temp Pulse Resp B/P (MAP) Pulse Ox O2 Delivery O2 Flow Rate FiO2 04/17/24 08:30 95 Room Air* 0 21 04/17/24 08:00 97.5 78 20 104/76 95 Room Air 04/17/24 04:00 98.1 57 16 92/62 98 Room Air LABS: Laboratory: Test 04/16/24 12:21 04/16/24 03:45 Range/Units Prothrombin Time 10.8 9.6-11.6 SEC Prothromb Time International Ratio 1.02 0.85-1.15 White Blood Count 8.3 4.8-10.8 K/uL Red Blood Count 4.77 4.00-5.50 MIL/uL Hemoglobin 14.7 12.0-16.0 g/dL Hematocrit 43.2 36-48 % Mean Corpuscular Volume 90.6 79-99 fL Mean Corpuscular Hemoglobin 30.8 27.0-33.0 pg Mean Corpuscular Hemoglobin Concent 34.0 32.0-36.0 g/dL Red Cell Distribution Width 12.2 11.0-15.5 % Platelet Count 302 130-400 K/uL Mean Platelet Volume 10.1 7.5-10.5 fL Immature Granulocyte % (Auto) 0.4 0-1 % Neutrophils (%) (Auto) 56.6 40.0-77.0 % Lymphocytes (%) (Auto) 32.0 21.0-51.0 % Monocytes (%) (Auto) 6.7 3.0-13.0 % Eosinophils (%) (Auto) 3.6 0.0-8.0 % Basophils (%) (Auto) 0.7 0.0-5.0 % Neutrophils # (Auto) 4.7 1.8-7.7 K/uL Lymphocytes # (Auto) 2.7 1.0-4.8 K/uL Monocytes # (Auto) 0.6 0.1-1.0 K/uL Eosinophils # (Auto) 0.30 0.00-0.70 K/uL Basophils # (Auto) 0.06 0.00-0.20 K/uL Absolute Immature Granulocyte (auto 0.03 0-1 K/uL Nucleated Red Blood Cells 0.0 0.0-0.19 % Urine Color LIGHT-YELLOW YELLOW Urine Appearance CLEAR CLEAR Urine pH 5.0 5.0-8.0 Urine Specific [place] 1.016 1.001-1.031 Urine Protein NEGATIVE NEGATIVE mg/dL Urine Glucose (UA) NEGATIVE NEGATIVE mg/dL Urine Ketones NEGATIVE NEGATIVE mg/dL Urine Occult Blood SMALL H NEGATIVE Urine Nitrate NEGATIVE NEGATIVE Urine Bilirubin NEGATIVE NEGATIVE mg/dL Urine Urobilinogen 0.2 0.2-1.0 mg/dL Urine Leukocyte Esterase NEGATIVE NEGATIVE Amalia/uL Urine RBC 0-1 0-1 /HPF Urine WBC 2-5 H 0-1 /HPF Urine Squamous Epithelial Cells FEW 0-2 /HPF Urine Bacteria RARE None Seen /HPF Sodium Level 139 136-145 mmol/L Potassium Level 3.5 3.5-5.1 mmol/L Chloride Level 104 101-111 mmol/L Carbon Dioxide Level 29 21-32 mmol/L Blood Urea Nitrogen 7 7-18 mg/dL Creatinine 0.7 0.5-1.0 mg/dL Glomerular Filtration Rate Calc 116 >90 mL/min Random Glucose 110 H 70-105 mg/dL Total Calcium 8.7 8.5-10.1 mg/dL Total Bilirubin 0.7 0.2-1.0 mg/dL Direct Bilirubin 0.1 0.0-0.3 mg/dL Aspartate Amino Transf (AST/SGOT) 23 10-37 U/L Alanine Aminotransferase (ALT/SGPT) 32 12-78 U/L Alkaline Phosphatase 88 50-136 U/L Total Protein 8.4 H 6.0-8.3 g/dL Albumin 3.7 3.5-5.0 g/dL Lipase 49 16-77 U/L Serum Test, Qualitative NEGATIVE NEGATIVE Current Medications Medications (Trade) Dose Ordered Sig/Radha Route PRN Reason Start Time Stop Time Status Last Admin Dose Admin Acetaminophen (TYLenol 500MG TAB) 500 mg Q6H PRN PO MILD PAIN (1-3) 04/16/24 12:30 05/16/24 12:29 Ceftriaxone Sodium (ROCEphine 1G INJ) 1 gm Q24H IVPB 04/16/24 12:30 04/26/24 12:29 04/16/24 13:05 1 GM Famotidine (Pepcid 20mg Vial) 20 mg BID IV 04/16/24 09:00 05/16/24 08:59 04/17/24 08:30 20 MG Ketorolac Tromethamine (toRADol) 15 mg Q6H PRN IV MODERATE PAIN (4-6) 04/16/24 06:30 04/21/24 06:29 04/16/24 09:07 15 MG Metronidazole/ Sodium Chloride (flaGYL) 500 mg Q8H IV 04/16/24 12:30 04/26/24 12:29 04/17/24 03:48 500 MG Morphine Sulfate (morPHINE 2MG SYG) 2 mg Q4H PRN IVP SEVERE PAIN (7-10) 04/16/24 12:30 04/23/24 12:29 Ondansetron HCl (zoFRAN 4MG INJ) 4 mg Q6H PRN IVP NAUSEA/VOMITING 04/16/24 12:30 05/16/24 12:29 Sodium Chloride 1,000 ml @ 100 mls/hr Q10H IV 04/16/24 06:30 05/16/24 06:29 04/17/24 01:47 100 MLS/HR DIAGNOSTICS / RADIOLOGY: [ ] ASSESSMENT: [Acute calculous cholecystitis by HIDA scan, POA Suspected acute cholecystitis, POA Intractable nausea and vomiting, POA ] PLAN: [Admit to medical-surgical Keep patient NPO Continue with IV fluids with NS at 100 mL/hour Continue IV Zosyn Appreciate recommendations from general surgeon, Dr. Castellano, patient went for lap marbella today, we will follow postop recommendations We will monitor electrolytes and replete as necessary We will repeat labs tomorrow GI and DVT prophylaxis Add when necessary meds for nausea, vomiting, pain, constipation, insomnia. Case discussed with Dr. Jean, above plan was formulated ATTESTATION BY PHYSICIAN I have seen and examined the patient. I reviewed the documentation, medical decision making, and treatment plan as noted by the mid-level provider above. I agree with the findings and plan of care. CHUN JEAN MD, [facility] Apr 17, 2024 10:27
[2024-04-17] MEDS ORDERED: NEOSTIGMINE METHYLSULFATE 1MG/ML IV ONE (10:35)
--- NOTE | 2024-04-17 11:01 | PRN ---
OPERATIVE REPORT DATE OF SERVICE: [ ] PREOPERATIVE DIAGNOSIS: [ ] POSTOPERATIVE DIAGNOSIS: [ ] PROCEDURE PERFORMED: Laparoscopic cholecystectomy. ANESTHESIA: General. BLOOD LOSS: [minimal ] SPECIMEN: [ gallbladdder] DESCRIPTION OF PROCEDURE: The patient was given preoperative antibiotics, was prepped and draped and e xplored through a supraumbilical incision after endotracheally intubating. A Veress needle was placed into the abdomen with negative aspiration and free flow of fluid. The abdomen was insufflated to 15 mL of water using CO2 and a 10-mm camera placed within. The remaining trocars, a 10-mm in the epigastrium and two 5-mm in the right upper quadrant were placed under direct visualization. The gallbladder fundus was elevated. The infundibulum grasped and placed on mild lateral retraction. A large amount of fat was cleared from the infundibulum. The cystic artery as well as the posterior branch were clipped twice proximally, once distally and divided as was the cystic duct. The gallbladder was removed from the gallbladder bed using electrocautery and the gallbladder was placed in an Endobag and brought out through the epigastric incision. The abdomen was copiously irrigated and hemostasis ensured. The abdomen was desufflated. The larger incisions were closed with interrupted Vicryl. Marcaine and amy were used for the skin. Patient tolerated the procedure. SILAS SANTIAGO MD Apr 17, 2024 11:01
[2024-04-17] MEDS: ondanSETRON 4MG INJ ONE (11:37)
[2024-04-17] MEDS: MEPERIDINE-PF 100 MG/ML SYG ONE (11:38)
[2024-04-17] MEDS: morPHINE 2 MG SYG IVP PRN (12:48)
[2024-04-17 15:01] LABS: HEMATOCRIT 40.1 % (36-48); MEAN CORPUSCULAR HEMOGLOBIN 31.6 pg (27.0-33.0); MEAN CORPUSCULAR HGB CONC 34.9 g/dL (32.0-36.0); MEAN CORPUSCULAR VOLUME 90.5 fL (79-99); RED BLOOD CELL COUNT(AUTO) 4.43 MIL/uL (4.00-5.50); RED CELL DISTRIBUTION WIDTH 12.4 % (11.0-15.5); WHITE BLOOD COUNT (AUTO) 14.1 K/uL (4.8-10.8)
[2024-04-17 15:14] LABS: ALBUMIN 3.2 g/dL (3.5-5.0); BILIRUBIN,TOTAL 0.7 mg/dL (0.2-1.0); CREATININE 0.7 mg/dL (0.5-1.0); POTASSIUM 3.9 mmol/L (3.5-5.1); TOTAL PROTEIN, SERUM 7.6 g/dL (6.0-8.3)
[2024-04-17] MEDS: ondanSETRON 4MG INJ IVP PRN (15:32)
--- NOTE | 2024-04-17 20:20 | NUR ---
MEDS PT VERBALIZES BURPING BUT NO PASSAGE OF GAS NOR BM YET. SHIFT ASSESSMENT DONE, PLEASE REFER TO CHART. DUE MEDS ADMINISTERED, TOLERATED WELL. PT TOLERATING DIET ORDERED. KEPT RESTED AND COMFORTABLE IN BED. CALL LIGHT WITHIN REACH. ENCOURAGED AMBULATION.
--- NOTE | 2024-04-17 21:20 | NUR ---
WALK PT AMBULATING IN THE HALLWAY, ACCOMPANIED BY FAMILY. TOLERATING ACTIVITY WELL.
[2024-04-18] VITALS: BP 117/73; PULSE 62; RESP 16; TEMP 98
[2024-04-18 04:00] VITALS: BP 112/70; PULSE 55; RESP 20; TEMP 98
[2024-04-18 04:10] LABS: HEMATOCRIT 37.8 % (36-48); MEAN CORPUSCULAR HGB CONC 34.4 g/dL (32.0-36.0); MEAN CORPUSCULAR VOLUME 90.2 fL (79-99); RED BLOOD CELL COUNT(AUTO) 4.19 MIL/uL (4.00-5.50); RED CELL DISTRIBUTION WIDTH 12.1 % (11.0-15.5); WHITE BLOOD COUNT (AUTO) 11.2 K/uL (4.8-10.8)
[2024-04-18 04:25] LABS: BILIRUBIN,DIRECT 0.2 mg/dL (0.0-0.3); CREATININE 0.7 mg/dL (0.5-1.0); POTASSIUM 3.7 mmol/L (3.5-5.1); TOTAL PROTEIN, SERUM 7.1 g/dL (6.0-8.3)
--- NOTE | 2024-04-18 05:30 | NUR ---
ROUNDS PT SLEPT AT INTERVALS DURING THE SHIFT. NO PASSAGE OF GAS NOR BM YET. NO DISTRESS NOTED. KEPT COMFORTABLE AND RESTED. FOR MORE CARE.
[2024-04-18 08:00] VITALS: BP 133/85; PULSE 75; RESP 19; TEMP 98.2
[2024-04-18] MEDS ORDERED: ACET-2079 PO (08:46)
[2024-04-18 09:00] VITALS: O2SAT 99
--- NOTE | 2024-04-18 10:04 | PN ---
no c/o abd soft nt stable for d/c low fat diet dc home Vitals/Labs Vital Signs Date Time Temp Pulse Resp B/P (MAP) Pulse Ox O2 Delivery O2 Flow Rate FiO2 04/18/24 08:00 98.2 75 19 133/85 99 Room Air 04/17/24 20:20 2 28 Laboratory Tests 04/17/24 14:45 04/18/24 03:48 Medications Current Medications Ketorolac Tromethamine 15 mg ONCE ONCE IV Last administered on 04/16/24at 04:47; Start 04/16/24 at 03:30; Stop 04/16/24 at 03:35; Status DC Ondansetron HCl 4 mg ONCE ONCE IVP Last administered on 04/16/24at 03:44; Start 04/16/24 at 03:30; Stop 04/16/24 at 03:34; Status DC Famotidine 20 mg ONCE ONCE IV Last administered on 04/16/24at 03:44; Start 04/16/24 at 03:30; Stop 04/16/24 at 03:34; Status DC Sodium Chloride 1,000 ml @ 0 mls/hr ONCE ONCE IV Last administered on 04/16/24at 03:44; Start 04/16/24 at 03:30; Stop 04/16/24 at 03:34; Status DC Pantoprazole Sodium 40 mg ONCE ONCE IVP Last administered on 04/16/24at 04:47; Start 04/16/24 at 04:30; Stop 04/16/24 at 04:31; Status DC Dicyclomine HCl 10 mg ONCE ONCE IM Last administered on 04/16/24at 04:48; Start 04/16/24 at 04:30; Stop 04/16/24 at 04:31; Status DC Iohexol 35,000 mg STK-MED ONCE IV; Start 04/16/24 at 05:02; Stop 04/16/24 at 05:08; Status DC Sodium Chloride 1,000 ml @ 100 mls/hr Q10H IV Last administered on 04/17/24at 22:29; Start 04/16/24 at 06:30; Stop 05/16/24 at 06:29 Famotidine 20 mg BID IV Last administered on 04/18/24at 09:17; Start 04/16/24 at 09:00; Stop 05/16/24 at 08:59 Hydromorphone HCl 0.5 mg ONCE ONCE IVP Last administered on 04/16/24at 06:29; Start 04/16/24 at 06:30; Stop 04/16/24 at 06:31; Status DC Ondansetron HCl 4 mg ONCE ONCE IVP Last administered on 04/16/24at 06:29; Start 04/16/24 at 06:30; Stop 04/16/24 at 06:31; Status DC Ketorolac Tromethamine 15 mg Q6H PRN IV Last administered on 04/17/24at 22:30; Start 04/16/24 at 06:30; Stop 04/21/24 at 06:29 Ceftriaxone Sodium 1 gm Q24H IVPB Last administered on 04/17/24at 12:48; Start 04/16/24 at 12:30; Stop 04/26/24 at 12:29 Metronidazole/ Sodium Chloride 500 mg Q8H IV Last administered on 04/18/24at 03:29; Start 04/16/24 at 12:30; Stop 04/26/24 at 12:29 Acetaminophen 500 mg Q6H PRN PO; Start 04/16/24 at 12:30; Stop 05/16/24 at 12:29 Ondansetron HCl 4 mg Q6H PRN IVP Last administered on 04/17/24at 15:32; Start 04/16/24 at 12:30; Stop 05/16/24 at 12:29 Morphine Sulfate 2 mg Q4H PRN IVP Last administered on 04/17/24at 12:48; Start 04/16/24 at 12:30; Stop 04/23/24 at 12:29 Potassium Chloride 100 ml @ 50 mls/hr ONCE ONCE IV Last administered on 04/16/24at 15:42; Start 04/16/24 at 12:30; Stop 04/16/24 at 14:29; Status DC Bupivacaine HCl 5 mg STK-MED ONCE .ROUTE; Start 04/17/24 at 09:29; Stop 04/17/24 at 09:29; Status DC Lidocaine HCl 100 mg STK-MED ONCE .ROUTE; Start 04/17/24 at 09:34; Stop 04/17/24 at 09:34; Status DC Midazolam HCl 2 mg STK-MED ONCE .ROUTE; Start 04/17/24 at 09:34; Stop 04/17/24 at 09:35; Status DC Propofol 200 mg STK-MED ONCE IV; Start 04/17/24 at 09:35; Stop 04/17/24 at 09:35; Status DC Succinylcholine Chloride 200 mg STK-MED ONCE .ROUTE; Start 04/17/24 at 09:35; Stop 04/17/24 at 09:35; Status DC Rocuronium [place] 50 mg STK-MED ONCE .ROUTE; Start 04/17/24 at 09:35; Stop 04/17/24 at 09:35; Status DC Fentanyl Citrate 100 mcg STK-MED ONCE .ROUTE; Start 04/17/24 at 09:35; Stop 04/17/24 at 09:35; Status DC Glycopyrrolate 1 mg STK-MED ONCE .ROUTE; Start 04/17/24 at 09:56; Stop 04/17/24 at 09:57; Status DC Ondansetron HCl 4 mg STK-MED ONCE .ROUTE; Start 04/17/24 at 10:15; Stop 04/17/24 at 10:15; Status DC Ceftriaxone Sodium 1 gm STK-MED ONCE IVPB Last administered on 04/17/24at 10:05; Start 04/17/24 at 10:05; Stop 04/17/24 at 10:26; Status DC Fentanyl Citrate 100 mcg STK-MED ONCE .ROUTE; Start 04/17/24 at 10:24; Stop 04/17/24 at 10:24; Status DC Ketorolac Tromethamine 30 mg STK-MED ONCE .ROUTE; Start 04/17/24 at 10:25; Stop 04/17/24 at 10:25; Status DC Neostigmine Methylsulfate 10 mg STK-MED ONCE IV; Start 04/17/24 at 10:35; Stop 04/17/24 at 10:35; Status DC Ondansetron HCl 4 mg STK-MED ONCE .ROUTE Last administered on 04/17/24at 11:37; Start 04/17/24 at 11:35; Stop 04/17/24 at 11:35; Status DC Meperidine HCl 100 mg STK-MED ONCE .ROUTE Last administered on 04/17/24at 11:38; Start 04/17/24 at 11:35; Stop 04/17/24 at 11:35; Status DC SILAS SANTIAGO MD Apr 18, 2024 10:04
--- NOTE | 2024-04-18 12:35 | NUR ---
DC NOTE DC INSTRUCTIONS AND FOLLOW UP APPOINTMENT GIVEN ALONG E-SCRIPT PRESCRIPTION SENT TO PT'S LOCAL PHARMACY. PIV REMOVED, CATHETER INTACT, DENIES ANY PAIN OR DISCOMFORT, X4 INCISIONS TO ABDOMEN CHANGE FROM GAUZE TO BAND-AIDS, DENIES ANY PAIN. PT IS WHEELED DOWNSTAIRS INTO VIA PRIVATE CAR. NO FURTHER COMMENTS OR CONCERNS AT THIS TIME.
--- NOTE | 2024-04-18 13:02 | DS ---
Discharge Summary Hospital Course Summary: 34 old female with past medical history of hypothyroidism and cholelithiasis recently was in the ED two weeks ago for complaints of abdominal pain nausea and vomiting. She presented to the emergency department with the same issues. She stated that symptoms started again around 6:00 p.m. last night. The pain increased and woke her up in her sleep hence she presented to the emergency department for further evaluation. In the ED, her initial vitals showed temperature of 97.5, pulse 64, respiratory rate 24, blood pressure 144/89, pulse oximetry 98% on room air. Labs reviewed, hematology unremarkable, chemistry: Random glucose 110, total protein 8.4, CT abdomen and pelvis which s howed gallstone in the distended bladder. Fibroid uterus. Ultrasound of the abdomen done pending final results but preliminary showed multiple gallstone in the distended gallbladder with positive ultrasound Cyr sign. Suspicious for acute cholecystitis. Patient was referred to the hospitalist for further evaluation and management. Patient was referred to General surgeon who recommended laparoscopic cholecystectomy after HIDA scan noted acute cholecystitis. Patient went for laparoscopic cholecystectomy on 04/17/2024 for which patient has tolerated the procedure well. Patient actually had no issues overnight. She denies any pain, already passing gas. Tolerating diet. She was seen by Dr. Castellano today, postop day one and was cleared patient for discharge. Advised patient to follow up with Dr. Castellano in one week. Follow up with PCP in 2-[address] Castellano sent Tylenol No. As needed for pain. This has been discussed with the patient, she verbalized understanding and is in agreement with the plan. Lobsterman(s): Dr. Castellano- Surgeon Procedure(s): 04/17/24-laparoscopic cholecystectomy by Dr. Castellano Assessment/Plan: Discharge diagnoses: [Acute calculous cholecystitis by HIDA scan, POA Suspected acute cholecystitis, POA Intractable nausea and vomiting, POA Admitting Diagnoses: Suspected acute cholecystitis, POA Intractable nausea and vomiting, POA ] Discharge Instructions: Follow up with PCP in 2-3 days Follow up with Dr. Castellano in 1 week Home Medications: Active Scripts Acetaminophen with Codeine (Acetaminophen-Cod #3 Tablet) 300 Mg-30 Mg Tablet, 1 EACH PO Q4HPRN, #20 TAB Prov:SILAS CASTELLANO MD 04/18/24 Discontinued Reported Medications Levothyroxine Sodium (Levothroid/Synthroid) 200 Mcg Tab, 1 TAB PO ACBKFST 04/17/24 Levothyroxine Sodium (Synthroid) 25 Mcg Tablet, 1 TAB PO ACBKFST 04/17/24 Discontinued Scripts Dicyclomine HCl (Bentyl) 10 Mg Cap, 1 CAP PO TID for Abdominal pain for 30 Days, #12 CAP 0 Refills Prov:TREVOR RUBIO 03/25/24 Ondansetron (Ondansetron Odt) 4 Mg Tab.rapdis, 4 MG PO Q6HPRN PRN for nausea, #16 TAB 0 Refills Prov:TREVOR RUBIO 03/25/24 Hydrocodone/Acetaminophen (Hydrocodon-Acetaminophen 5-325) 5 Mg-325 Mg Tablet, 1 EACH PO q8 for pain, #5 TAB 0 Refills Prov:JR POOL MD 12/28/23 Enzymes,Digestive (Digestive Wellness) 1 Each Capsule, 1 EACH PO DAILY, #30 CAP Prov:JR POOL MD 12/28/23 Cephalexin Monohydrate (Keflex) 500 Mg Cap, 1 CAP PO BID for 10 Days, #20 CAP 0 Refills Prov:EMELYN GALLO MD 12/08/23 Hydrocodone/Acetaminophen (Hydrocodon-Acetaminoph 7.5-325) 7.5 Mg-325 Mg Tablet, 1 EACH PO TID PRN for PAIN for 10 Days, #20 TAB Prov:VICTORIANO BLOCK DO 07/17/23 Dicyclomine HCl (Bentyl) 20 Mg Tab, 20 MG PO QID for abd pain, #20 TAB Prov:VICTORIANO BLOCK DO 07/17/23 Ondansetron (Ondansetron Odt) 4 Mg Tab.rapdis, 4 MG PO TID for nausea/vomiting for 10 Days, #10 TAB Prov:VICTORIANO BLOCK DO 07/17/23 Ibuprofen (Ibuprofen 800 mg Tab) 800 Mg Tab, 800 MG PO Q6H PRN for PAIN, #30 TAB Prov:VICTORIANO BLOCK DO 07/17/23 Ondansetron (Ondansetron Odt) 4 Mg Tab.rapdis, 4 MG PO TID PRN for NAUSEA, #30 TAB 0 Refills Prov:VERNA WAKEFIELD MD 02/07/23 Ibuprofen (Ibuprofen) 600 Mg Tablet, 600 MG PO Q6H PRN for PAIN, #40 TAB 0 Refills Prov:VERNA WAKEFIELD MD 02/07/23 Prednisone (Prednisone) 5 Mg Tablet, 5 MG PO BID for 7 Days, #14 TAB Prov:EMELYN GALLO MD 02/05/22 Amoxicillin (Amoxicillin) 500 Mg Capsule, 500 MG PO TID for 7 Days, #21 CAP Prov:EMELYN GALLO MD 02/05/22 Time spent arranging discharge: 31-60 minutes ATTESTATION BY PHYSICIAN I have seen and examined the patient. I reviewed the documentation, medical decision making, and treatment plan as noted by the mid-level provider above. I agree with the findings and plan of care. CHUN JEAN MD, [facility] Apr 18, 2024 13:02
--- NOTE | 2024-04-18 20:48 | CONS ---
HISTORY OF PRESENT ILLNESS: The patient is a 34-year-old morbidly obese female who had been scheduled for outpatient laparoscopic cholecystectomy by Dr. Bronson, however, the patient began having right upper quadrant pain after eating ramen prior to admission. I have been asked to see the patient for cholecystitis. PAST MEDICAL HISTORY: Fibroid uterus as well as hypothyroidism. MEDICATIONS: She is on scheduled antibiotics. ALLERGIC: She is not allergic to medications. SURGICAL HISTORY: She denies any past surgical history. PHYSICAL EXAMINATION: GENERAL: The patient is morbidly obese. She is awake, alert and oriented. VITAL SIGNS: She is afebrile. Blood pressure is 104/76 with a heart rate of 78. CHEST: Clear. HEART: Regular rate and rhythm. ABDOMEN: Soft, nontender, no guarding, no rebound. EXTREMITIES: Show no edema. LABORATORY DATA: White count of 8.3, hematocrit of 43.2, platelets of 302. SMA-7 is unremarkable. LFTs are within normal limits. Lipase is 49. Beta hCG is negative. CT of the abdomen as well as ultrasound and HIDA are consistent with acute cholecystitis with distended gallbladder. ASSESSMENT AND PLAN: Acute cholecystitis for laparoscopic cholecystectomy. TID: [id number] RECEIPT: [id number]
== END 2024-04-18 12:25 | disposition home or self-care (01) | DRG 418 ==
LOC: EDH 03:09 → EDHIP 06:14 → 3AH 07:10
PROVIDERS: ADMIT Internal Medicine; ATTEND Internal Medicine
PROC: 0FT44ZZ Resection of Gallbladder, Percutaneous Endoscopic Approach (ICD-10-PCS; principal; 2024-04-17 09:50)
DX: K80.00 Calculus of gallbladder with acute cholecystitis without obstruction (principal); Z68.41 Body mass index [BMI] 40.0-44.9, adult; D25.9 Leiomyoma of uterus, unspecified; E03.9 Hypothyroidism, unspecified; E66.01 Morbid (severe) obesity due to excess calories; Z79.899 Other long term (current) drug therapy
CPT/HCPCS: 36415; 74177; 76705; 78226; 80048; 80053; 80076; 81001; 83690; 84703; 85025; 85027; 85610; 96361; 96372; 96374; 96375; 99285; A9537; G0378; J0330; J0500; J0696; J1171; J1885; J2003; J2175; J2250; J2270; J2405; J2470; J2704; J2710; J3010; J3480; J3490; J7030; Q9967; A4215; A4600; A4649; A6206; J0665